=== PATIENT | female | born 1935 | race Caucasian/White ===

== ENCOUNTER 2017-02-25 16:33 | Observation (INO) | payer MEDICARE, OTHER ==
[2017-02-25] VITALS (8 sets, daily range): BP systolic 103–123; BP diastolic 51–72; PULSE 67–74; RESP 16–18; TEMP 97–98.2; O2SAT 94–100
[~2017-02-25] VITALS: Ht 144.8 cm; Wt 82.7 kg
[~2017-02-25 16:33] MED LIST: CLIN1CAP5 PO; CYMB60CA PO; HYDR-3580 PO; LORT5TAB PO; NEXI40CA PO; SIMV20 PO; TRAZ100T50 PO; VESI10TA4 PO; ZOFR4TAB3 SL
[2017-02-25] MEDS ORDERED: SODIUM CHLOR 0.9% 1000 ML INJ 1,000 ML IV SCH (16:55)
[2017-02-25] MEDS ORDERED: FAMOTIDINE 20 MG/2 ML VIAL IV PUSH ONE (17:00)
[2017-02-25] MEDS ORDERED: diphenhydrAMINE HCL 50 MG/ML VIAL IVP ONE (17:00)
[2017-02-25] MEDS ORDERED: EPINEPHrine HCL (1:1000) 1 MG/ML VIAL IM ONE (17:00)
[2017-02-25] MEDS ORDERED: SODIUM CHLORIDE 0.9% FLUSH 10 ML FLUSH IV FLUSH PRN ×2 (17:00→19:00)
[2017-02-25] MEDS ORDERED: methylPREDNISolone SOD SUCC 125 MG/2 ML VIAL IM ONE (17:00)
--- NOTE | 2017-02-25 17:01 | PD ---
HPI Chief Complaint: Respiratory Symptoms Time Seen by Provider: 16:43 Travel History International Travel<30 days: No Contact w/Intl Traveler<30days: No Traveled to known affect area: No History of Present Illness HPI 81yo F with PMH of afib, depression presents to the ED with c/o throat closing and trouble breathing today. States she took bupropion for the first time this morning and had these symptoms after that. States she had some nausea prior to the medication today. Pt also started belsomna for insomnia for a few days and is on bactrim. Denies any fever, chest pain, cough, rash, vomiting, abdominal pain, focal weakness or numbness. PFSH Past Medical History Hx Anticoagulant Therapy: Yes (WARFARIN) Arthritis: Yes Atrial Fibrillation: Yes Autoimmune Disease: No Blood Disorders: No Anxiety: Yes Depression: Yes Heart Rhythm Problems: No Cancer: No Cardiovascular Problems: Yes (A. FIB, HTN, CHOL) High Cholesterol: Yes Chest Pain: Yes Congestive Heart Failure: Yes Diabetes: No Diminished Hearing: No Endocrine: No Gastrointestinal Disorders: Yes (GERD) GERD: Yes Glaucoma: No Genitourinary: Yes Hypertension: Yes Immune Disorder: Yes (fibromyalgia) Implanted Vascular Access Dvce: Yes Musculoskeletal: Yes Neurologic: No Psychiatric: Yes Reproductive: No Respiratory: Yes Myocardial Infarction: No Sickle Cell Disease: No Sleep Apnea: Yes (uses c-pap at nite) Thyroid Disease: No Tetanus Vaccination: > 5 Years Influenza Vaccination: No ?: Not Past Surgical History AICD: No Arteriovenous Shunt: No Eye Surgery: Yes (paco cataract removed, LENS IMPLANTS) Gynecologic Surgery: Yes (hystereectomy partial) Hysterectomy: Yes Insulin Pump: No Joint Replacement: Yes (paco knees and L HIP) Pacemaker: No Other Surgery: Yes Social History Alcohol Use: No Tobacco Use: No Substance Use: Yes Allergies-Medications (Allergen,Severity, Reaction): Coded Allergies: Gabapentin (Verified Allergy, Severe, Dizziness, 02/25/17) Penicillin (Verified Allergy, Severe, Hives, 02/25/17) Xarelto (Verified Allergy, Severe, MUSCLE ACHES, 02/25/17) Reported Meds & Prescriptions Reported Meds & Active Scripts Active Reported Bactrim DS (Sulfamethoxazole-Trimethoprim) 800-160 Mg Tab 1 Tab PO BID Atorvastatin (Atorvastatin Calcium) 10 Mg Tab 10 Mg PO HS Esomeprazole DR 20 Mg Capdr 20 Mg PO DAILY Coumadin (Warfarin) 5 Mg Tab 5 Mg PO DAILY Ergocalciferol 50,000 Unit Cap 50,000 Units PO Q7D Flector Patch (Diclofenac Patch) 1.3 % Patch 1 Patch TOPICAL BID Valsartan-Hydrochlorothiazide 160-25 Mg Tab 1 Tab PO DAILY Metoprolol Tartrate 50 Mg Tab 50 Mg PO BID Myrbetriq (Mirabegron) 50 Mg Tab 50 Mg PO DAILY Belsomra (Suvorexant) 20 Mg Tab 2 Tab PO HS Amlodipine (Amlodipine Besylate) 10 Mg Tab 10 Mg PO BID Review of Systems Except as stated in HPI: all other systems reviewed are Neg Physical Exam Narrative GENERAL: 81yo F in mild distress. SKIN: Focused skin assessment warm/dry. No urticaria. HEAD: Atraumatic. Normocephalic. EYES: Pupils equal and round. No scleral icterus. No injection or drainage. No periorbital swelling. ENT: Mild uvula edema. Uvula midline. Patent airway. No tongue or lip swelling. No drooling. NECK: Trachea midline. No JVD. CARDIOVASCULAR: Regular rate and rhythm. No murmur appreciated. RESPIRATORY: No accessory muscle use. Clear to auscultation. Breath sounds equal bilaterally. No stridor. No tripoding. GASTROINTESTINAL: Abdomen soft, non-tender, nondistended. MUSCULOSKELETAL: No obvious deformities. No clubbing. No cyanosis. +Trace bilateral ext edema. NEUROLOGICAL: Awake and alert. No obvious cranial nerve deficits. Motor grossly within normal limits. Normal speech. PSYCHIATRIC: Appropriate mood and affect; insight and judgment normal. Data Data Last Documented VS Vital Signs Date Time Temp Pulse Resp B/P Pulse Ox O2 Delivery O2 Flow Rate FiO2 02/25/17 18:11 74 16 110/59 98 Room Air 02/25/17 16:36 98.2 Orders Basic Metabolic Panel (Bmp) (02/25/17 16:55) Complete Blood Count With Diff (02/25/17 16:55) Ecg Monitoring (02/25/17 16:55) Iv Access Insert/Monitor (02/25/17 16:55) Oximetry (02/25/17 16:55) Diphenhydramine Inj (Benadryl Inj) (02/25/17 17:00) Methylprednisolone So Succ Inj (Solumedr (02/25/17 17:00) Famotidine Inj (Pepcid Inj) (02/25/17 17:00) Sodium Chlor 0.9% 1000 Ml Inj (Ns 1000 M (02/25/17 16:55) Sodium Chloride 0.9% Flush (Ns Flush) (02/25/17 17:00) Epinephrine (1:1000) Inj (Adrenalin (1:1 (02/25/17 17:00) Electrocardiogram (02/25/17 ) Troponin I (02/25/17 16:55) Ckmb (Isoenzyme) Profile (02/25/17 16:55) Soft Tissue Neck (02/25/17 ) Chest, Single Ap (02/25/17 ) Pulmonary Fellow / Telemetry LOIS.Q8H (02/25/17 16:55) B-Type Natriuretic Peptide (02/25/17 17:01) Admit Order (Ed Use Only) (02/25/17 18:11) Labs Laboratory Tests Test 02/25/17 17:00 White Blood Count 8.3 TH/MM3 Red Blood Count 4.49 MIL/MM3 Hemoglobin 11.7 GM/DL Hematocrit 36.4 % Mean Corpuscular Volume 81.2 FL Mean Corpuscular Hemoglobin 26.0 PG Mean Corpuscular Hemoglobin 32.0 % Concent Red Cell Distribution Width 14.9 % Platelet Count 191 TH/MM3 Mean Platelet Volume 7.1 FL Neutrophils (%) (Auto) 69.8 % Lymphocytes (%) (Auto) 17.9 % Monocytes (%) (Auto) 9.6 % Eosinophils (%) (Auto) 2.4 % Basophils (%) (Auto) 0.3 % Neutrophils # (Auto) 5.8 TH/MM3 Lymphocytes # (Auto) 1.5 TH/MM3 Monocytes # (Auto) 0.8 TH/MM3 Eosinophils # (Auto) 0.2 TH/MM3 Basophils # (Auto) 0.0 TH/MM3 CBC Comment DIFF FINAL Differential Comment Sodium Level 139 MEQ/L Potassium Level 3.7 MEQ/L Chloride Level 102 MEQ/L Carbon Dioxide Level 27.3 MEQ/L Anion Gap 10 MEQ/L Blood Urea Nitrogen 41 MG/DL Creatinine 1.20 MG/DL Estimat Glomerular Filtration 43 ML/MIN Rate Random Glucose 116 MG/DL Calcium Level 8.7 MG/DL Total Creatine Kinase 64 U/L Troponin I LESS THAN 0.02 NG/ML B-Type Natriuretic Peptide 214 PG/ML MDM Medical Decision Making Medical Screen Exam Complete: Yes Emergency Medical Condition: Yes Interpretation(s) EKG: NSR 67bpm. No ST segment elevation or depression. Differential Diagnosis Allergic reaction vs. anxiety vs. soft tissue neck infection Narrative Course 81yo F with complained of tightening of his throat today with sob. Pt had started on a new medication bupropion this morning. Lungs are clear. Uvula mildly edematous, not very impressive. labs reviewed, no leukocytosis. Troponin negative. BNP mildly elevated at 214. BUN/creatinine mildly elevated. Pt reevaluated at bedside and states throat swelling improved. SOB also improved. Lungs are still clear. CXR showed compensated cardiomegaly. Xray soft tissue negative. Will admit for observation overnight and discussed with [facility]. Admit to Dr. Phuc Garcia. Diagnosis Primary Impression: Allergic reaction Qualified Code: T78.40XA - Allergic reaction, initial encounter Admitting Information Admitting Physician Requests: Observation Preethi Rivera DO February 25, 2017 17:01
[2017-02-25 17:12] LABS: AUTOMATED NEUTROPHIL # 5.8 TH/MM3 (1.8-7.7); BASOPHIL % 0.3 % (0.0-2.0); EOSINOPHIL # 0.2 TH/MM3 (0-0.4); EOSINOPHIL % 2.4 % (0.0-4.0); HEMATOCRIT 36.4 % (35.0-46.0); HEMO FLAGS DIFF FINAL; LYMPH % 17.9 % (9.0-44.0); LYMPHOCYTE # 1.5 TH/MM3 (1.0-4.8); MEAN CELL VOLUME 81.2 FL (80.0-100.0); MONO % 9.6 % (0.0-8.0); NEUT % 69.8 % (16.0-70.0); PLATELET COUNT 191 TH/MM3 (150-450); RED BLOOD COUNT 4.49 MIL/MM3 (4.00-5.30); RED CELL DISTRIBUTION WIDTH 14.9 % (11.6-17.2); WHITE BLOOD COUNT 8.3 TH/MM3 (4.0-11.0)
[2017-02-25 17:21] LABS: CHLORIDE 102 MEQ/L (98-107); POTASSIUM 3.7 MEQ/L (3.5-5.1); SODIUM (NA) 139 MEQ/L (136-145)
[2017-02-25] MEDS ORDERED: BUPR1TAB29 PO (17:21)
[2017-02-25] MEDS ORDERED: ESOM0.1C PO (17:21)
[2017-02-25] MEDS ORDERED: AMLO10TA2 PO (17:21)
[2017-02-25] MEDS ORDERED: COUM5TAB PO (17:21)
[2017-02-25] MEDS ORDERED: SUVO1TAB4 PO (17:21)
[2017-02-25] MEDS ORDERED: VALS160T6 PO (17:21)
[2017-02-25] MEDS ORDERED: ATOR10TA15 PO (17:21)
[2017-02-25] MEDS ORDERED: ERGO1CAP30 PO (17:21)
[2017-02-25] MEDS ORDERED: FLEC1.3D4 TOPICAL (17:21)
[2017-02-25] MEDS ORDERED: MIRA50TA PO (17:21)
[2017-02-25] MEDS ORDERED: METO50TA PO (17:21)
[2017-02-25] MEDS ORDERED: BACT800T5 PO (17:22)
[2017-02-25 17:24] LABS: ANION GAP 10 MEQ/L (5-15); BICARBONATE 27.3 MEQ/L (21.0-32.0); BLOOD UREA NITROGEN 41 MG/DL (7-18)
[2017-02-25 17:28] LABS: GLOMERULAR FILTRATION RATE 43 ML/MIN (>89)
[2017-02-25 17:41] LABS: CREATINE KINASE 64 U/L (26-192)
--- NOTE | 2017-02-25 17:46 | RADHPO ---
EXAM DATE/TIME: 02/25/2017 17:23 [facility] COMPARISON: No previous studies available for comparison. INDICATIONS : Short of breath, difficulty swallowing MEDICAL HISTORY : Chronic obstructive pulmonary disease. SURGICAL HISTORY : None. ENCOUNTER: Initial ACUITY: 1 day PAIN SCORE: 0/10 LOCATION: Bilateral neck FINDINGS: Degenerative changes are evident. I see no soft tissue mass or radiopaque foreign body. CONCLUSION: Degenerative changes otherwise negative Hayden Wheeler MD FACR on February 25, 2017 at 17:43 Board Certified Radiologist. This report was verified electronically.
--- NOTE | 2017-02-25 17:47 | RADHPO ---
EXAM DATE/TIME: 02/25/2017 17:18 [facility] COMPARISON: No previous studies available for comparison. INDICATIONS : Short of breath, difficulty swallowing MEDICAL HISTORY : Chronic obstructive pulmonary disease. SURGICAL HISTORY : None. ENCOUNTER: Initial ACUITY: 1 day PAIN SCORE: 0/10 LOCATION: Bilateral chest FINDINGS: The lungs are clear. The heart is minimally enlarged. The pulmonary vascularity is normal. There is n o evidence for infiltrate or failure. Degenerative changes are present about both shoulders. CONCLUSION: Compensated cardiomegaly otherwise negative Hayden Wheeler MD FACR Board Certified Radiologist. This report was verified electronically.
[2017-02-25] MEDS ORDERED: NALOXONE HCL 0.4 MG/ML AMP IV PRN (19:00)
[2017-02-25] MEDS ORDERED: RESP: ALBUTEROL 2.5 MG/IPRATROPIUM 0.5 MG NEB (PRN) NEB (19:00)
[2017-02-25] MEDS ORDERED: diphenhydrAMINE HCL 50 MG/ML VIAL IV PUSH PRN (19:00)
[2017-02-25] MEDS ORDERED: ACETAMINOPHEN 325 MG TAB PO PRN (19:00)
[2017-02-25] MEDS ORDERED: ONDANSETRON HCL 4 MG/2 ML VIAL IVP PRN (19:00)
[2017-02-25 19:41] LABS: INTERNATIONAL NORMALIZED RATIO 1.4 RATIO; PROTHROMBIN TIME - PATIENT 16.2 SEC (9.8-11.6)
[2017-02-25] MEDS ORDERED: ATORVASTATIN 10 MG TAB PO SCH (21:00)
[2017-02-25] MEDS: METOPROLOL TARTRATE 50 MG TAB PO SCH (21:13)
[2017-02-25 23:35] LABS: CREATINE KINASE 55 U/L (26-192)
[2017-02-26] VITALS: BP 115/69; PULSE 70; RESP 16; TEMP 97.9; O2SAT 95
[2017-02-26] MEDS: SODIUM CHLORIDE 0.9% FLUSH 10 ML FLUSH IV FLUSH SCH ×2 (00:43→09:02)
[2017-02-26 04:48] VITALS: BP 119/67; PULSE 64; RESP 20; TEMP 98; O2SAT 94
[2017-02-26] MEDS ORDERED: methylPREDNISolone SOD SUCC 40 MG/1 ML VIAL IV PUSH SCH (06:00)
[2017-02-26 07:07] LABS: AUTOMATED NEUTROPHIL # 7.8 TH/MM3 (1.8-7.7); BASOPHIL % 0.3 % (0.0-2.0); EOSINOPHIL % 0.1 % (0.0-4.0); HEMATOCRIT 35.3 % (35.0-46.0); HEMO FLAGS DIFF FINAL; LYMPH % 7.1 % (9.0-44.0); LYMPHOCYTE # 0.6 TH/MM3 (1.0-4.8); MEAN CELL VOLUME 82.5 FL (80.0-100.0); MEAN CORPUSCULAR HEMOGLOBIN 26.5 PG (27.0-34.0); MEAN CORPUSCULAR HGB CONC 32.1 % (32.0-36.0); MONO % 0.7 % (0.0-8.0); NEUT % 91.8 % (16.0-70.0); PLATELET COUNT 178 TH/MM3 (150-450); RED BLOOD COUNT 4.28 MIL/MM3 (4.00-5.30); RED CELL DISTRIBUTION WIDTH 14.4 % (11.6-17.2); WHITE BLOOD COUNT 8.5 TH/MM3 (4.0-11.0)
[2017-02-26 07:13] LABS: CHLORIDE 103 MEQ/L (98-107); POTASSIUM 4.1 MEQ/L (3.5-5.1); SODIUM (NA) 140 MEQ/L (136-145)
[2017-02-26 07:17] LABS: ANION GAP 8 MEQ/L (5-15); BICARBONATE 28.8 MEQ/L (21.0-32.0); BLOOD UREA NITROGEN 34 MG/DL (7-18)
[2017-02-26 07:20] LABS: GLOMERULAR FILTRATION RATE 58 ML/MIN (>89)
[2017-02-26 07:35] LABS: CREATINE KINASE 50 U/L (26-192)
[2017-02-26 08:00] VITALS: BP 135/70; PULSE 70; RESP 18; TEMP 98.1; O2SAT 98
[2017-02-26] MEDS: METOPROLOL TARTRATE 50 MG TAB PO SCH (08:58)
[2017-02-26] MEDS ORDERED: FAMOTIDINE 20 MG/2 ML VIAL IV PUSH SCH (09:00)
[2017-02-26] MEDS ORDERED: VALSARTAN 160 MG TAB PO SCH (09:00)
[2017-02-26] MEDS ORDERED: HYDROCHLOROTHIAZIDE 25 MG TAB PO SCH (09:00)
[2017-02-26] MEDS ORDERED: NON-FORMULARY DRUG (Mirabegron (Myrbetriq) 50 MG) PO SCH (09:00)
[2017-02-26] MEDS ORDERED: NON-FORMULARY DRUG (Valsartan-Hydrochlorothiazide 1 TAB) PO SCH (09:00)
[2017-02-26] MEDS ORDERED: MIRABEGRON 50 MG PO SCH (09:00)
--- NOTE | 2017-02-26 10:39 | MH ---
cc: PHUC SOLORZANO MD DATE OF ADMISSION: 02/25/2017 CHIEF COMPLAINT Shortness of breath. HISTORY OF PRESENT ILLNESS This is an 81-year-old female with past medical/surgical history significant for atrial fibrillation on Coumadin, history of arthritis, history of anxiety and depression, history of hypertension, hyperlipidemia, congestive heart failure, history of GERD, fibromyalgia, uses a CPAP at nighttime, bilateral cataract surgery, partial hysterectomy and bilateral hip and knee joint replacement. She lives alone at home. She came to the ER at [facility] complaining of throat closing and trouble breathing today. She states she took bupropion for the first time this morning and had these symptoms. She stated she had some nausea prior to the medication today. She started Belsomra for insomnia for a few days and is on Bactrim. Denies any fever or chills, cough, rash, vomiting, abdominal pain, focal weakness or numbness. PAST MEDICAL HISTORY As dictated above. PAST SURGICAL HISTORY As dictated above. SOCIAL HISTORY Denies smoking, drinking or taking and drugs. Lives at home alone. Her recently . FAMILY HISTORY Nothing significant. ALLERGIES 1. GABAPENTIN. 2. PENICILLIN. 3. XARELTO. MEDICATIONS 1. Bactrim DS, one p.o. b.i.d. 2. Lipitor 10 mg p.o. daily. 3. Omeprazole 20 mg p.o. daily. 4. Coumadin 5 mg p.o. daily. 5. Ergocalciferol 50,000 units q.1 week. 6. Diclofenac patch topically twice a day. 7. Valsartan/hydrochlorothiazide 160/25 p.o. daily. 8. Metoprolol tartrate 50 mg twice a day. 9. Myrbetriq 50 mg p.o. daily. 10.Belsomra 20 mg p.o. h.s., two tablets. 11.Amlodipine 10 mg p.o. b.i.d. REVIEW OF SYSTEMS All review of systems are negative at the time of examination. The patient does not have any symptoms or complaints at the time of examination. PHYSICAL EXAMINATION GENERAL: This is an 81-year-old female sitting on the bed, not in acute distress. VITAL SIGNS: Temperature 98.1, heart rate 70, respirations 18, blood pressure 135/70, O2 saturation 98% on room air. HEENT: Normocephalic, atraumatic. EOMI. PERRL. Oral mucosa moist. NECK: Supple. No visible thyromegaly or neck mass. Trachea is central. CV: Regular rate and rhythm. LUNGS: Respirations clear to auscultation bilaterally. ABDOMEN: Soft, nontender. Bowel sounds audible. EXTREMITIES: No cyanosis. No clubbing. Full range of motion of all extremities. NEUROLOGIC: Awake, alert, oriented x4. No focal deficits. SKIN: Warm and dry. PSYCHIATRIC: The patient is cooperative. Mood and affect is normal. LABORATORY CBC is unremarkable except for hemoglobin 11.3 low, MCH 26.5 low, neutrophils 91.8% high, lymphocytes 7.1% low. BMP is unremarkable except for creatinine 1.2, now 0.93, blood sugar 141 high, BUN 34 high. Troponin-I less than 0.02 x3. BNP 214 high. PT 16, INR 1.4. IMAGING Chest x-ray shows compensated cardiomegaly, otherwise negative. Soft tissue neck x-ray shows degenerative changes, otherwise negative. ASSESSMENT AND PLAN 1. This is an 81-year female who came to the ER, diagnosed with allergic reaction secondary to bupropion which has totally resolved. 2. History of atrial fibrillation, rate controlled. The patient is on Coumadin. INR is subtherapeutic. Patient advised to check PT and INR with her PCP. The patient wants to go home. The patient advised to stay and have INR come up to 2.0. The patient refused. The risks, benefits and alternatives explained to the patient including . The patient verbalized understanding. 3. History of hypertension. Continue home medication. 4. History of hyperlipidemia. Continue home medication. 5. History of anxiety and depression. Continue home medication. 6. History of gastroesophageal reflux disease. Continue home medication. 7. Patient discharged home and advised to follow with PCP and check PT and INR. Advised INR needs to be between 2 and 3. Phuc Solorzano MD EA/EDEL /10:02 AM /10:24 AM
[2017-02-26 12:00] VITALS: BP 116/65; PULSE 65; RESP 18; TEMP 97.8; O2SAT 96
--- NOTE | 2017-02-26 14:50 | EKG ---
Date Performed: 02/26/2017 Time Performed: 05:03:14 PTAGE: 81 years EKG: Sinus rhythm Low QRS voltages in precordial leads Borderline ECG PREVIOUS TRACING : 02/25/2017 22.32 Since previous tracing, no significant change noted DOCTOR: Bebeto Azul Interpretating Date/Time 02/26/2017 14:43:46
--- NOTE | 2017-02-26 14:51 | EKG ---
Date Performed: 02/25/2017 Time Performed: 22:32:22 PTAGE: 81 years EKG: Sinus rhythm . Normal ECG No change from prior. PREVIOUS TRACING : 02/25/2017 17.01 DOCTOR: Bebeto Azul Interpretating Date/Time 02/26/2017 14:48:11
--- NOTE | 2017-02-26 14:51 | EKG ---
Date Performed: 02/25/2017 Time Performed: 17:01:58 PTAGE: 81 years EKG: Sinus rhythm No change from prior. Abnormal ECG PREVIOUS TRACING : 07/15/2009 09.45 DOCTOR: Bebeto Azul Interpretating Date/Time 02/26/2017 14:47:59
[2017-02-26] MEDS ORDERED: WARFARIN SOD 5 MG TAB PO SCH (16:00)
== END 2017-02-26 13:32 | disposition home or self-care (01) ==
LOC: PHED 16:33 → UNDOADMOB 18:13 → PHEDA 18:13 → PH3A 21:30 → UNDODISOB 02-26 13:32
PROVIDERS: ADMIT Family Medicine; ATTEND Family Medicine
DX: R06.02 Shortness of breath (principal); T43.295A Adverse effect of other antidepressants, initial encounter; I48.91 Unspecified atrial fibrillation; I11.0 Hypertensive heart disease with heart failure; I50.9 Heart failure, unspecified; E78.00 Pure hypercholesterolemia, unspecified; E78.5 Hyperlipidemia, unspecified; K21.9 Gastro-esophageal reflux disease without esophagitis; M19.90 Unspecified osteoarthritis, unspecified site; M79.7 Fibromyalgia; F32.9 Major depressive disorder, single episode, unspecified; G47.00 Insomnia, unspecified; F41.9 Anxiety disorder, unspecified; G47.30 Sleep apnea, unspecified; Z79.01 Long term (current) use of anticoagulants; Z99.89 Dependence on other enabling machines and devices; Z96.653 Presence of artificial knee joint, bilateral; Z96.642 Presence of left artificial hip joint; Z88.0 Allergy status to penicillin; Z88.8 Allergy status to other drugs, medicaments and biological substances
CPT/HCPCS: 70360; 71010; 80048; 82550; 83880; 84484; 85025; 85610; 93005; 96372; 96374; 96375; 99285; G0378; J0171; J1200; J2405; J2920; J2930

== ENCOUNTER 2017-07-31 10:51 | Emergency (ER) | payer MEDICARE, OTHER ==
[~2017-07-31] VITALS: Ht 144.8 cm; Wt 87.0 kg
[~2017-07-31 10:51] MED LIST changes: +AMLO10TA2 PO; +ATOR10TA15 PO; +BACT800T5 PO; -CLIN1CAP5 PO; +COUM5TAB PO; -CYMB60CA PO; +ERGO1CAP30 PO; +ESOM0.1C PO; +FLEC1.3D4 TOPICAL; -HYDR-3580 PO; -LORT5TAB PO; +METO50TA PO; +MIRA50TA PO; -NEXI40CA PO; -SIMV20 PO; +SUVO1TAB4 PO; -TRAZ100T50 PO; +VALS160T6 PO; -VESI10TA4 PO; -ZOFR4TAB3 SL
[2017-07-31 10:52] VITALS: BP 227/95; PULSE 83; RESP 20; TEMP 98.4; O2SAT 97
[2017-07-31 11:32] LABS: AUTOMATED NEUTROPHIL # 5.1 TH/MM3 (1.8-7.7); BASOPHIL % 0.3 % (0.0-2.0); EOSINOPHIL # 0.1 TH/MM3 (0-0.4); EOSINOPHIL % 1.2 % (0.0-4.0); HEMATOCRIT 35.3 % (35.0-46.0); HEMO FLAGS DIFF FINAL; LYMPH % 16.9 % (9.0-44.0); LYMPHOCYTE # 1.2 TH/MM3 (1.0-4.8); MEAN CELL VOLUME 79.6 FL (80.0-100.0); MEAN CORPUSCULAR HEMOGLOBIN 25.3 PG (27.0-34.0); MEAN CORPUSCULAR HGB CONC 31.7 % (32.0-36.0); MONO % 9.4 % (0.0-8.0); NEUT % 72.2 % (16.0-70.0); PLATELET COUNT 195 TH/MM3 (150-450); RED BLOOD COUNT 4.43 MIL/MM3 (4.00-5.30); RED CELL DISTRIBUTION WIDTH 15.9 % (11.6-17.2)
[2017-07-31 11:45] LABS: INTERNATIONAL NORMALIZED RATIO 2.6 RATIO; PROTHROMBIN TIME - PATIENT 29.5 SEC (9.8-11.6)
[2017-07-31 11:48] LABS: ANION GAP 5 MEQ/L (5-15); AST (GOT) 16 U/L (15-37); BICARBONATE 29.5 MEQ/L (21.0-32.0); BLOOD UREA NITROGEN 22 MG/DL (7-18); CHLORIDE 108 MEQ/L (98-107); GLOMERULAR FILTRATION RATE 92 ML/MIN (>89); SODIUM (NA) 142 MEQ/L (136-145)
[2017-07-31 11:51] LABS: ACETAMINOPHEN 2.6 MCG/ML (10.0-30.0); ALKALINE PHOSPHATASE 78 U/L (45-117); ALT (GPT) 16 U/L (10-53); TOTAL BILIRUBIN ADULT 0.4 MG/DL (0.2-1.0)
[2017-07-31 11:53] LABS: ALCOHOL LESS THAN 3 MG/DL (0-5)
[2017-07-31 11:55] LABS: BACTERIA, URINE OCC /hpf; BLOOD, URINE TRACE (NEG); GLUCOSE,URINE NEG (NEG); KETONE, URINE NEG (NEG); NITRITE,URINE NEG (NEG); SQUAMOUS EPITHELIAL CELL URINE <1 /hpf (0-5); URINE COLOR LIGHT-YELLOW (YELLW/STRAW)
[2017-07-31] MEDS ORDERED: LYRI50CA PO (11:55)
[2017-07-31] MEDS ORDERED: JANT5TAB PO (11:55)
[2017-07-31] MEDS ORDERED: OXYB15TA PO (11:55)
[2017-07-31 11:56] LABS: COMMENT (UR) CULT NOT INDICATED; CULTURE IF INDICATED CULT NOT INDICATED
--- NOTE | 2017-07-31 12:04 | PD ---
HPI Chief Complaint: Psychiatric Symptoms Time Seen by Provider: 11:48 Travel History International Travel<30 days: No Contact w/Intl Traveler<30days: No Traveled to known affect area: No History of Present Illness HPI 81 YO F with PMH of depression presents to the ED for evaluation of one year history of increasing depression, worsened recently after the patient moved from her home to an independent living facility. The patient endorses anhedonia , increased somnolence, weight gain. She states "I just feel like I don't have any reason to live." The patient is a [employer] with a strong taoist belief. She states this is the only thing that keeps her from ending her life. She states that she saved 4 or 5 of her "sleeping pills--just in case." Her friend is at bedside and states that her symptoms have definitely worsened over the last few weeks. The patient denies somatic complaints. She states that she is in her normal state of health currently. The patient is followed by Dr. Bazan in [place]. She is currently taking Lyrica. PFSH Past Medical History Hx Anticoagulant Therapy: Yes (WARFARIN) Arthritis: Yes Asthma: No Atrial Fibrillation: Yes Autoimmune Disease: No Blood Disorders: No Anxiety: Yes Depression: Yes Heart Rhythm Problems: No Cancer: No Cardiovascular Problems: Yes (A. FIB, HTN, CHOL) High Cholesterol: Yes Chest Pain: Yes Congestive Heart Failure: Yes COPD: No Diabetes: No Diminished Hearing: No Endocrine: No Gastrointestinal Disorders: Yes (GERD) GERD: Yes Glaucoma: No Genitourinary: Yes Hiatal Hernia: No Hypertension: Yes Immune Disorder: Yes (fibromyalgia) Implanted Vascular Access Dvce: Yes Kidney Stones: No Musculoskeletal: Yes Neurologic: No Psychiatric: Yes Reproductive: No Respiratory: Yes Myocardial Infarction: No Renal Failure: No Sickle Cell Disease: No Sleep Apnea: Yes (uses c-pap at nite) Thyroid Disease: No Ulcer: No Tetanus Vaccination: < 5 Years Past Surgical History Abdominal Surgery: No AICD: No Arteriovenous Shunt: No Cardiac Surgery: No Ear Surgery: No Endocrine Surgery: No Eye Surgery: Yes (paco cataract removed, LENS IMPLANTS) Genitourinary Surgery: No Gynecologic Surgery: Yes (hystereectomy partial) Hysterectomy: Yes Insulin Pump: No Joint Replacement: Yes (paco knees and L HIP) Oral Surgery: No Pacemaker: No Thoracic Surgery: No Other Surgery: Yes Social History Alcohol Use: No Tobacco Use: No Substance Use: No Allergies-Medications (Allergen,Severity, Reaction): Coded Allergies: gabapentin (Unverified Allergy, Severe, Dizziness, 07/31/17) penicillin G (Unverified Allergy, Severe, Hives, 07/31/17) rivaroxaban (Unverified Allergy, Severe, MUSCLE ACHES, 07/31/17) Uncoded Allergies: donezepil (Adverse Reaction, Severe, Lethargy, 07/31/17) Reported Meds & Prescriptions Reported Meds & Active Scripts Active Effexor (Venlafaxine HCl) 75 Mg Tab 75 Mg PO Q12H Reported Oxybutynin ER 24 HR (Oxybutynin Chloride) 15 Mg Tab 15 Mg PO DAILY Jantoven (Warfarin) 5 Mg Tab 5 Mg PO DAILY Lyrica (Pregabalin) 50 Mg Cap 50 Mg PO BID Bactrim DS (Sulfamethoxazole-Trimethoprim) 800-160 Mg Tab 1 Tab PO BID Atorvastatin (Atorvastatin Calcium) 10 Mg Tab 10 Mg PO HS Esomeprazole DR 20 Mg Capdr 20 Mg PO DAILY Coumadin (Warfarin) 5 Mg Tab 5 Mg PO DAILY Ergocalciferol 50,000 Unit Cap 50,000 Units PO Q7D Flector Patch (Diclofenac Patch) 1.3 % Patch 1 Patch TOPICAL BID Valsartan-Hydrochlorothiazide 160-25 Mg Tab 1 Tab PO DAILY Metoprolol Tartrate 50 Mg Tab 50 Mg PO BID Myrbetriq (Mirabegron) 50 Mg Tab 50 Mg PO DAILY Belsomra (Suvorexant) 20 Mg Tab 2 Tab PO HS Amlodipine (Amlodipine Besylate) 10 Mg Tab 10 Mg PO BID Review of Systems Except as stated in HPI: all other systems reviewed are Neg Physical Exam Narrative GENERAL: Obese white female in no acute distress. PSYCHIATRIC: No delusional thought processes. No hallucinations. Depressed affect. Occasionally tearful. SKIN: Focused skin assessment warm/dry. HEAD: Normocephalic. EYES: No scleral icterus. No injection or drainage. NECK: Supple, trachea midline. No JVD or lymphadenopathy. CARDIOVASCULAR: Irregularly irregular rate and rhythm without murmurs, gallops, or rubs. RESPIRATORY: Breath sounds clear and equal bilaterally. No accessory muscle use. GASTROINTESTINAL: Abdomen soft, non-tender, nondistended. Active bowel sounds. MUSCULOSKELETAL: No cyanosis, or edema. BACK: Nontender without obvious deformity. No CVA tenderness. Data Data Last Documented VS Vital Signs Date Time Temp Pulse Resp B/P (MAP) Pulse Ox O2 Delivery O2 Flow Rate FiO2 07/31/17 15:49 78 20 162/74 (103) 98 07/31/17 10:52 98.4 Room Air Orders Orders Complete Blood Count With Diff (07/31/17 10:58) Comprehensive Metabolic Panel (07/31/17 10:58) Urinalysis - C+S If Indicated (07/31/17 10:58) Psych Screen (07/31/17 10:58) Drug Screen, Random Urine (07/31/17 10:58) Alcohol (Ethanol) (07/31/17 10:58) Salicylates (Aspirin) (07/31/17 10:58) Tylenol (Acetaminophen) (07/31/17 10:58) Electrocardiogram (07/31/17 ) Prothrombin Time / Inr (Pt) (07/31/17 11:15) Diet Regular Basic (07/31/17 Lunch) Labs Laboratory Tests Test 07/31/17 11:11 07/31/17 11:30 White Blood Count 7.0 TH/MM3 Red Blood Count 4.43 MIL/MM3 Hemoglobin 11.2 GM/DL Hematocrit 35.3 % Mean Corpuscular Volume 79.6 FL Mean Corpuscular Hemoglobin 25.3 PG Mean Corpuscular Hemoglobin Concent 31.7 % Red Cell Distribution Width 15.9 % Platelet Count 195 TH/MM3 Mean Platelet Volume 6.7 FL Neutrophils (%) (Auto) 72.2 % Lymphocytes (%) (Auto) 16.9 % Monocytes (%) (Auto) 9.4 % Eosinophils (%) (Auto) 1.2 % Basophils (%) (Auto) 0.3 % Neutrophils # (Auto) 5.1 TH/MM3 Lymphocytes # (Auto) 1.2 TH/MM3 Monocytes # (Auto) 0.7 TH/MM3 Eosinophils # (Auto) 0.1 TH/MM3 Basophils # (Auto) 0.0 TH/MM3 CBC Comment DIFF FINAL Differential Comment Prothrombin Time 29.5 SEC Prothromb Time International Ratio 2.6 RATIO Blood Urea Nitrogen 22 MG/DL Creatinine 0.62 MG/DL Random Glucose 94 MG/DL Total Protein 6.2 GM/DL Albumin 3.4 GM/DL Calcium Level 8.4 MG/DL Alkaline Phosphatase 78 U/L Aspartate Amino Transf (AST/SGOT) 16 U/L Alanine Aminotransferase (ALT/SGPT) 16 U/L Total Bilirubin 0.4 MG/DL Sodium Level 142 MEQ/L Potassium Level 4.0 MEQ/L Chloride Level 108 MEQ/L Carbon Dioxide Level 29.5 MEQ/L Anion Gap 5 MEQ/L Estimat Glomerular Filtration Rate 92 ML/MIN Salicylates Level LESS THAN 1.7 MG/DL Acetaminophen Level 2.6 MCG/ML Ethyl Alcohol Level LESS THAN 3 MG/DL Urine Color LIGHT-YELLOW Urine Turbidity CLEAR Urine pH 7.0 Urine Specific Seibert 1.004 Urine Protein NEG mg/dL Urine Glucose (UA) NEG mg/dL Urine Ketones NEG mg/dL Urine Occult Blood TRACE Urine Nitrite NEG Urine Bilirubin NEG Urine Urobilinogen LESS THAN 2.0 MG/DL Urine Leukocyte Esterase SMALL Urine RBC LESS THAN 1 /hpf Urine WBC 5 /hpf Urine Squamous Epithelial Cells <1 /hpf Urine Bacteria OCC /hpf Microscopic Urinalysis Comment CULT NOT INDICATED Urine Opiates Screen NEG Urine Barbiturates Screen NEG Urine Amphetamines Screen NEG Urine Benzodiazepines Screen NEG Urine Cocaine Screen NEG Urine Cannabinoids Screen NEG MDM Medical Decision Making Medical Screen Exam Complete: Yes Emergency Medical Condition: Yes Differential Diagnosis Adjustment disorder versus anxiety versus bipolar versus depression versus dementia versus electrolyte disorder versus malingering versus mood disorder versus ODD versus psychosis versus PTSD versus schizophrenia versus schizoaffective disorder versus substance-induced mood disorder versus other Narrative Course 81 YO F with PMH of depression presents to the ED for evaluation of one year history of increasing depression, worsened recently after the patient moved from her home to an independent living facility. The patient endorses anhedonia , increased somnolence, weight gain. She states "I just feel like I don't have any reason to live." The patient is a [employer] with a strong taoist belief. She states this is the only thing that keeps her from ending her life. She states that she saved 4 or 5 of her "sleeping pills--just in case." Her friend is at bedside and states that her symptoms have definitely worsened over the last few weeks. The patient is currently taking Lyrica. Vitals reviewed. Patient is hypertensive on presentation. Physical exam is reassuring. CBC, CMP , coags, UA all without concerning abnormalities. Tox screen negative. The patient is medically cleared for psychiatric evaluation, awaiting psychiatric recommendations. Diagnosis Primary Impression: Medical clearance for psychiatric admission Additional Impression: Adjustment disorder with depressed mood Referrals: Zack Cleveland MD Additional Instructions: Take medication as prescribed. Follow up with Dr. Cleveland as planned. Return to the ED for any urgent or emergent medical condition. Scripts Venlafaxine (Effexor) 75 Mg Tab 75 MG PO Q12H, #60 TAB 0 Refills Prov: Zack Cleveland MD 07/31/17 Disposition: 01 DISCHARGE HOME Condition: Stable Lalitha Ashraf Jul 31, 2017 12:04
[2017-07-31 13:10] VITALS: BP 194/77; PULSE 68; RESP 20; O2SAT 98
[2017-07-31 13:14] VITALS: BP 182/83
[2017-07-31] MEDS ORDERED: VENL75TA PO (15:41)
[2017-07-31 15:49] VITALS: BP 162/74; PULSE 78; RESP 20; O2SAT 98
--- NOTE | 2017-07-31 15:53 | PD ---
History of Present Illness Chief Complaint: Psychiatric Symptoms Time Seen by Provider: 15:30 Travel History International Travel<30 Days: No Contact w/Intl Traveler<30days: No Known affected area: No Legal Status Legal Status: Voluntary History of Present Illness: 81-year-old female with significant two-month history of depression. Patient has transitioned from independent living to a assisted living facility. She has no children. Her sister lives in [place]. Patient has medical problems including 2 bad knees. She has been treated with multiple antidepressants but she spends most of her time sleeping. She is having suicidal thoughts but states she will not attempt to kill herself, even though she has been hoarding her sleeping pills. (Patient agrees to give up her pills to her friend.) She is also Mu-Is[employer] and does to mass every morning. She is been on Lexapro 20 mg per day since April, without improvement. She has been on other antidepressants including Wellbutrin, Cymbalta, etc. This physician interviewed the patient, the patient's sister and the patient's friend. They are willing to watch out for her and would like this physician to treat her on an outpatient basis. She is verbally eliseo for safety. PFSH Past Medical History Hx Anticoagulant Therapy: Yes (WARFARIN) Arthritis: Yes Asthma: No Atrial Fibrillation: Yes Autoimmune Disease: No Blood Disorders: No Anxiety: Yes Depression: Yes Heart Rhythm Problems: No Cancer: No Cardiovascular Problems: Yes (A. FIB, HTN, CHOL) High Cholesterol: Yes Chest Pain: Yes Congestive Heart Failure: Yes COPD: No Diabetes: No Diminished Hearing: No Endocrine: No Gastrointestinal Disorders: Yes (GERD) GERD: Yes Glaucoma: No Genitourinary: Yes Hiatal Hernia: No Hypertension: Yes Immune Disorder: Yes (fibromyalgia) Implanted Vascular Access Dvce: Yes Kidney Stones: No Musculoskeletal: Yes Neurologic: No Psychiatric: Yes Reproductive: No Respiratory: Yes Myocardial Infarction: No Renal Failure: No Sickle Cell Disease: No Sleep Apnea: Yes (uses c-pap at nite) Thyroid Disease: No Ulcer: No Tetanus Vaccination: < 5 Years Past Surgical History Abdominal Surgery: No AICD: No Arteriovenous Shunt: No Cardiac Surgery: No Ear Surgery: No Endocrine Surgery: No Eye Surgery: Yes (paco cataract removed, LENS IMPLANTS) Genitourinary Surgery: No Gynecologic Surgery: Yes (hystereectomy partial) Hysterectomy: Yes Insulin Pump: No Joint Replacement: Yes (paco knees and L HIP) Oral Surgery: No Pacemaker: No Thoracic Surgery: No Other Surgery: Yes Psychiatric History Psychiatric History Hx Psychiatric Treatment: Patient has been treated for depression by primary care physician in the past. History of Inpatient Treatment: No Guns or firearms in home: No Social History Hx Alcohol Use: No Hx Tobacco Use: No Hx Substance Use: No Allergies-Medications (Allergen,Severity, Reaction): Coded Allergies: gabapentin (Unverified Allergy, Severe, Dizziness, 07/31/17) penicillin G (Unverified Allergy, Severe, Hives, 07/31/17) rivaroxaban (Unverified Allergy, Severe, MUSCLE ACHES, 07/31/17) Uncoded Allergies: donezepil (Adverse Reaction, Severe, Lethargy, 07/31/17) Reported Meds & Prescriptions Reported Meds & Active Scripts Active Effexor (Venlafaxine HCl) 75 Mg Tab 75 Mg PO Q12H Reported Oxybutynin ER 24 HR (Oxybutynin Chloride) 15 Mg Tab 15 Mg PO DAILY Jantoven (Warfarin) 5 Mg Tab 5 Mg PO DAILY Lyrica (Pregabalin) 50 Mg Cap 50 Mg PO BID Bactrim DS (Sulfamethoxazole-Trimethoprim) 800-160 Mg Tab 1 Tab PO BID Atorvastatin (Atorvastatin Calcium) 10 Mg Tab 10 Mg PO HS Esomeprazole DR 20 Mg Capdr 20 Mg PO DAILY Coumadin (Warfarin) 5 Mg Tab 5 Mg PO DAILY Ergocalciferol 50,000 Unit Cap 50,000 Units PO Q7D Flector Patch (Diclofenac Patch) 1.3 % Patch 1 Patch TOPICAL BID Valsartan-Hydrochlorothiazide 160-25 Mg Tab 1 Tab PO DAILY Metoprolol Tartrate 50 Mg Tab 50 Mg PO BID Myrbetriq (Mirabegron) 50 Mg Tab 50 Mg PO DAILY Belsomra (Suvorexant) 20 Mg Tab 2 Tab PO HS Amlodipine (Amlodipine Besylate) 10 Mg Tab 10 Mg PO BID Review of Systems Musculoskeletal: COMPLAINS OF: Muscle aches Except as stated in HPI: all other systems reviewed are Neg Mental Status Examination Appearance: Appropriate Consciousness: Alert Orientation: x4 Motor Activity: Normal gait Speech: Unremarkable Language: Adequate Fund of Knowledge: Adequate Attention and Concentration: Adequate Memory: Unremarkable Mood: Sad, Anxious Affect: Sad, Anxious Thought Process & Associations: Intact Thought Content: Appropriate Hallucination Type: None Delusion Type: None Suicidal Ideation: Yes Suicidal Plan: No Suicidal Intention: No Homicidal Ideation: No Homicidal Plan: No Homicidal Intention: No Insight: Adequate Judgment: Adequate MDM Medical Decision Making Medical Record Reviewed: Yes Assessment/Plan Patient interviewed at bedside as well as her sister and her friend. Medical record reviewed. Case discussed with nurse Venita. This physician started her on Effexor 37.5 mg every 12 hours for one week and then 75 mg every 12 hours. Informed consent was given. Patient will be given a follow up appointment with this physician once it is cleared with hospital administration. Orders Orders Complete Blood Count With Diff (07/31/17 10:58) Comprehensive Metabolic Panel (07/31/17 10:58) Urinalysis - C+S If Indicated (07/31/17 10:58) Psych Screen (07/31/17 10:58) Drug Screen, Random Urine (07/31/17 10:58) Alcohol (Ethanol) (07/31/17 10:58) Salicylates (Aspirin) (07/31/17 10:58) Tylenol (Acetaminophen) (07/31/17 10:58) Electrocardiogram (07/31/17 ) Prothrombin Time / Inr (Pt) (07/31/17 11:15) Diet Regular Basic (07/31/17 Lunch) Results Vital Signs Date Time Temp Pulse Resp B/P (MAP) Pulse Ox O2 Delivery O2 Flow Rate FiO2 07/31/17 13:14 182/83 (116) 07/31/17 13:10 68 20 194/77 (116) 98 07/31/17 10:52 98.4 83 20 227/95 (139) 97 Room Air Laboratory Tests Test 07/31/17 11:11 07/31/17 11:30 White Blood Count 7.0 Red Blood Count 4.43 Hemoglobin 11.2 Hematocrit 35.3 Mean Corpuscular Volume 79.6 Mean Corpuscular Hemoglobin 25.3 Mean Corpuscular Hemoglobin Concent 31.7 Red Cell Distribution Width 15.9 Platelet Count 195 Mean Platelet Volume 6.7 Neutrophils (%) (Auto) 72.2 Lymphocytes (%) (Auto) 16.9 Monocytes (%) (Auto) 9.4 Eosinophils (%) (Auto) 1.2 Basophils (%) (Auto) 0.3 Neutrophils # (Auto) 5.1 Lymphocytes # (Auto) 1.2 Monocytes # (Auto) 0.7 Eosinophils # (Auto) 0.1 Basophils # (Auto) 0.0 CBC Comment DIFF FINAL Differential Comment Prothrombin Time 29.5 Prothromb Time International Ratio 2.6 Blood Urea Nitrogen 22 Creatinine 0.62 Random Glucose 94 Total Protein 6.2 Albumin 3.4 Calcium Level 8.4 Alkaline Phosphatase 78 Aspartate Amino Transf (AST/SGOT) 16 Alanine Aminotransferase (ALT/SGPT) 16 Total Bilirubin 0.4 Sodium Level 142 Potassium Level 4.0 Chloride Level 108 Carbon Dioxide Level 29.5 Anion Gap 5 Estimat Glomerular Filtration Rate 92 Salicylates Level LESS THAN 1.7 Acetaminophen Level 2.6 Ethyl Alcohol Level LESS THAN 3 Urine Color LIGHT-YELLOW Urine Turbidity CLEAR Urine pH 7.0 Urine Specific [place] 1.004 Urine Protein NEG Urine Glucose (UA) NEG Urine Ketones NEG Urine Occult Blood TRACE Urine Nitrite NEG Urine Bilirubin NEG Urine Urobilinogen LESS THAN 2.0 Urine Leukocyte Esterase SMALL Urine RBC LESS THAN 1 Urine WBC 5 Urine Squamous Epithelial Cells <1 Urine Bacteria OCC Microscopic Urinalysis Comment CULT NOT INDICATED Urine Opiates Screen NEG Urine Barbiturates Screen NEG Urine Amphetamines Screen NEG Urine Benzodiazepines Screen NEG Urine Cocaine Screen NEG Urine Cannabinoids Screen NEG Diagnosis Primary Impression: Adjustment disorder with depressed mood Prescriptions Venlafaxine (Effexor) 75 Mg Tab 75 MG PO Q12H, #60 TAB 0 Refills Prov: Zack Cleveland MD 07/31/17 Zack Cleveland MD Jul 31, 2017 15:53
--- NOTE | 2017-08-01 14:26 | EKG ---
Date Performed: 07/31/2017 Time Performed: 11:03:09 PTAGE: 81 years EKG: Sinus rhythm LOW QRS VOLTAGE IN PRECORDIAL LEADS MINIMAL ST DEPRESSION BORDERLINE ECG PREVIOUS TRACING : 02/26/2017 05.03 DOCTOR: Juaquin Singer Interpretating Date/Time 08/01/2017 14:19:39
== END 2017-07-31 16:18 | disposition home or self-care (01) ==
LOC: NEPD 10:51
DX: F43.21 Adjustment disorder with depressed mood (principal); I48.91 Unspecified atrial fibrillation; I10 Essential (primary) hypertension; R94.31 Abnormal electrocardiogram [ECG] [EKG]; Z79.899 Other long term (current) drug therapy; Z79.01 Long term (current) use of anticoagulants
CPT/HCPCS: 80053; 80307; 81001; 85025; 85610; 93005; 99284

== ENCOUNTER 2017-08-08 10:29 | Inpatient (IN) | payer MEDICARE, OTHER ==
[2017-08-08] VITALS (11 sets, daily range): BP systolic 162–214; BP diastolic 68–102; PULSE 75–100; RESP 16–20; TEMP 97.6–98.2; O2SAT 87–98
[~2017-08-08] VITALS: Ht 144.8 cm; Wt 78.9 kg
[~2017-08-08 10:29] MED LIST changes: +JANT5TAB PO; +LYRI50CA PO; +OXYB15TA PO; +VENL75TA PO
[2017-08-08] MEDS ORDERED: KETO2CRE TOPICAL (11:07)
[2017-08-08] MEDS ORDERED: MEMA1TAB PO (11:07)
[2017-08-08] MEDS ORDERED: SUVO1TAB4 PO (11:07)
[2017-08-08] MEDS ORDERED: VENL75TA PO (11:09)
[2017-08-08] MEDS ORDERED: methylPREDNISolone SOD SUCC 125 MG/2 ML VIAL IV PUSH ONE (11:15)
[2017-08-08] MEDS ORDERED: SODIUM CHLORIDE 0.9% FLUSH 10 ML FLUSH IVF PRN (11:15)
[2017-08-08] MEDS: RESP: ALBUTEROL 2.5 MG/IPRATROPIUM 0.5 MG NEB (SCH) INH (11:18)
--- NOTE | 2017-08-08 11:42 | RADRPT ---
EXAM DATE/TIME: 08/08/2017 11:23 [facility] COMPARISON: CHEST SINGLE AP, February 25, 2017, 17:18. INDICATIONS : Short of breath. MEDICAL HISTORY : Hypercholesterolemia. Gastroesophageal reflux disease. Congestive heart failure. A-fib. Hypertens ion. Sleep apnea. Arthritis. Fibromyalgia. SURGICAL HISTORY : Hysterectomy. Total knee replacement, left. Total knee replacement, right. ENCOUNTER: Initial ACUITY: 1 day PAIN SCORE: 0/10 LOCATION: chest FINDINGS: Mild infiltrate seen in the right base. There is fullness in the right infrahilar region. Trace left base atelectasis noted. No large effusion. No pneumothorax. Heart size stable, upper limits of normal. CONCLUSION: Mild right base pneumonia. Possible right infrahilar mass or lymphadenopathy. CT of the chest recomme nded when clinically feasible, preferably with intravenous contrast. Sami Ocampo MD on August 08, 2017 at 11:40 Board Certified Radiologist. This report was verified electronically.
[2017-08-08 11:43] LABS: AUTOMATED NEUTROPHIL # 8.9 TH/MM3 (1.8-7.7); BASOPHIL # 0.2 TH/MM3 (0-0.2); BASOPHIL % 1.7 % (0.0-2.0); EOSINOPHIL # 0.1 TH/MM3 (0-0.4); EOSINOPHIL % 0.7 % (0.0-4.0); HEMATOCRIT 34.2 % (35.0-46.0); LYMPH % 10.2 % (9.0-44.0); LYMPHOCYTE # 1.1 TH/MM3 (1.0-4.8); MEAN CELL VOLUME 78.2 FL (80.0-100.0); MEAN CORPUSCULAR HEMOGLOBIN 24.3 PG (27.0-34.0); MONO % 7.9 % (0.0-8.0); NEUT % 79.5 % (16.0-70.0); PLATELET COUNT 167 TH/MM3 (150-450); RED BLOOD COUNT 4.37 MIL/MM3 (4.00-5.30); RED CELL DISTRIBUTION WIDTH 16.3 % (11.6-17.2); WHITE BLOOD COUNT 11.2 TH/MM3 (4.0-11.0)
[2017-08-08 11:45] LABS: HEMO FLAGS AUTO DIFF
[2017-08-08 11:56] LABS: BLOOD, URINE MOD (NEG); GLUCOSE,URINE NEG (NEG); KETONE, URINE NEG (NEG); NITRITE,URINE NEG (NEG)
[2017-08-08 11:59] LABS: INTERNATIONAL NORMALIZED RATIO 1.7 RATIO; PROTHROMBIN TIME - PATIENT 19.4 SEC (9.8-11.6)
[2017-08-08] MEDS ORDERED: LABETALOL HCL 100 MG/20 ML VIAL IV PUSH ONE (12:00)
[2017-08-08 12:01] LABS: METHOD OF COLLECTION CLEAN CATCH
[2017-08-08 12:02] LABS: COMMENT (UR) CULT NOT INDICATED; CULTURE IF INDICATED CULT NOT INDICATED; SQUAMOUS EPITHELIAL CELL URINE 0-5 /hpf (0-5); URINE COLOR YELLOW (YELLW/STRAW); WBC, URINE 0-2 /hpf (0-5)
--- NOTE | 2017-08-08 12:09 | PD ---
HPI Chief Complaint: Respiratory Symptoms Time Seen by Provider: 10:52 Travel History International Travel<30 days: No Contact w/Intl Traveler<30days: No Traveled to known affect area: No History of Present Illness HPI 81-year-old female complains of coughing congestion shortness of breath. Patient states that the symptoms started about 3 days ago. Patient states the cough is intermittently productive. Patient denies any chest pain. Patient states that she has dyspnea on exertion. Patient denies any fever chills. Patient has history hypertension and did not take her blood pressure medications this morning. Patient denies any headache. Patient denies any abdominal pain. Patient denies any focal weakness or numbness of the extremity. Patient has history of depression, restless leg syndrome, hypertension, atrial fibrillation on Coumadin, hyperlipidemia, fibromyalgia, sleep apnea on CPAP at night. PFSH Past Medical History Hx Anticoagulant Therapy: Yes (WARFARIN) Arthritis: Yes Asthma: No Atrial Fibrillation: Yes Autoimmune Disease: No Blood Disorders: No Anxiety: Yes Depression: Yes Heart Rhythm Problems: No Cancer: No Cardiovascular Problems: Yes (A. FIB, HTN, CHOL) High Cholesterol: Yes Chest Pain: Yes Congestive Heart Failure: Yes COPD: No Diabetes: No Diminished Hearing: No Endocrine: No Gastrointestinal Disorders: Yes (GERD) GERD: Yes Glaucoma: No Genitourinary: Yes Hiatal Hernia: No Hypertension: Yes Immune Disorder: Yes (fibromyalgia) Implanted Vascular Access Dvce: Yes Kidney Stones: No Musculoskeletal: Yes Neurologic: No Psychiatric: Yes Reproductive: No Respiratory: Yes Myocardial Infarction: No Renal Failure: No Sickle Cell Disease: No Sleep Apnea: Yes (uses c-pap at nite) Thyroid Disease: No Ulcer: No Past Surgical History Abdominal Surgery: No AICD: No Arteriovenous Shunt: No Cardiac Surgery: No Ear Surgery: No Endocrine Surgery: No Eye Surgery: Yes (paco cataract removed, LENS IMPLANTS) Genitourinary Surgery: No Gynecologic Surgery: Yes (hystereectomy partial) Hysterectomy: Yes Insulin Pump: No Joint Replacement: Yes (paco knees and L HIP) Neurologic Surgery: No Oral Surgery: No Pacemaker: No Thoracic Surgery: No Other Surgery: Yes Social History Alcohol Use: No Tobacco Use: No Substance Use: No Allergies-Medications (Allergen,Severity, Reaction): Coded Allergies: gabapentin (Unverified Allergy, Severe, Dizziness, 07/31/17) penicillin G (Unverified Allergy, Severe, Hives, 07/31/17) rivaroxaban (Unverified Allergy, Severe, MUSCLE ACHES, 07/31/17) Uncoded Allergies: donezepil (Adverse Reaction, Severe, Lethargy, 07/31/17) Reported Meds & Prescriptions Reported Meds & Active Scripts Active Reported Effexor (Venlafaxine HCl) 75 Mg Tab 75 Mg PO DAILY Memantine 5 Mg Tab 5 Mg PO BID Belsomra (Suvorexant) 20 Mg Tab 20 Mg PO HS Ketoconazole Topical 2% Cream 1 Applic TOPICAL BID Oxybutynin ER 24 HR (Oxybutynin Chloride) 15 Mg Tab 15 Mg PO DAILY Jantoven (Warfarin) 5 Mg Tab 5 Mg PO DAILY Ergocalciferol 50,000 Unit Cap 50,000 Units PO Q7D Valsartan-Hydrochlorothiazide 160-25 Mg Tab 1 Tab PO DAILY Metoprolol Tartrate 50 Mg Tab 50 Mg PO BID Review of Systems General / Constitutional: No: Fever Eyes: No: Visual changes HENT: No: Headaches Cardiovascular: No: Chest Pain or Discomfort Respiratory: Positive: Cough, Shortness of Breath Gastrointestinal: No: Abdominal Pain Genitourinary: No: Dysuria Musculoskeletal: No: Pain Skin: No Rash Neurologic: No: Weakness Psychiatric: No: Depression Endocrine: No: Polydipsia Hematologic/Lymphatic: No: Easy Bruising Physical Exam Narrative GENERAL: Well-nourished, well-developed patient. SKIN: Focused skin assessment warm/dry. HEAD: Normocephalic. EYES: No scleral icterus. No injection or drainage. NECK: Supple, trachea midline. No JVD or lymphadenopathy. CARDIOVASCULAR: Regular rate and rhythm without murmurs, gallops, or rubs. RESPIRATORY: Breath sounds equal bilaterally. No accessory muscle use. Patient has moderate expiratory wheezes bilaterally. Mild rhonchi at the bases. GASTROINTESTINAL: Abdomen soft, non-tender, nondistended. MUSCULOSKELETAL: No cyanosis, or edema. BACK: Nontender without obvious deformity. No CVA tenderness. Neurologic exam normal. Data Data Last Documented VS Vital Signs Date Time Temp Pulse Resp B/P (MAP) Pulse Ox O2 Delivery O2 Flow Rate FiO2 08/08/17 11:15 94 Nasal Cannula 2.00 08/08/17 10:30 98.2 92 18 214/102 (139) Orders Orders Complete Blood Count With Diff (08/08/17 11:07) B-Type Natriuretic Peptide (08/08/17 11:07) Act Partial Throm Time (Ptt) (08/08/17 11:07) Prothrombin Time / Inr (Pt) (08/08/17 11:07) Urinalysis - C+S If Indicated (08/08/17 11:07) Influenzae A/B Antigen (08/08/17 11:07) Iv Access Insert/Monitor (08/08/17 11:07) Electrocardiogram (08/08/17 11:07) Ecg Monitoring (08/08/17 11:07) Oximetry (08/08/17 11:07) Oxygen Administration (08/08/17 11:07) Chest, Single Ap (08/08/17 11:07) Sodium Chloride 0.9% Flush (Ns Flush) (08/08/17 11:15) Methylprednisolone So Succ Inj (Solumedr (08/08/17 11:15) Albuterol-Ipratropium Neb (Duoneb Neb) (08/08/17 11:15) Comprehensive Metabolic Panel (08/08/17 11:36) Labetalol Inj (Trandate Inj) (08/08/17 12:00) Ct Thorax/ Chest W Iv Contrast (08/08/17 12:11) Levofloxacin 750 Mg Premix Inj (Levaquin (08/08/17 12:15) Labs Laboratory Tests Test 08/08/17 11:35 08/08/17 11:46 White Blood Count 11.2 TH/MM3 Red Blood Count 4.37 MIL/MM3 Hemoglobin 10.6 GM/DL Hematocrit 34.2 % Mean Corpuscular Volume 78.2 FL Mean Corpuscular Hemoglobin 24.3 PG Mean Corpuscular Hemoglobin Concent 31.0 % Red Cell Distribution Width 16.3 % Platelet Count 167 TH/MM3 Mean Platelet Volume 6.1 FL Neutrophils (%) (Auto) 79.5 % Lymphocytes (%) (Auto) 10.2 % Monocytes (%) (Auto) 7.9 % Eosinophils (%) (Auto) 0.7 % Basophils (%) (Auto) 1.7 % Neutrophils # (Auto) 8.9 TH/MM3 Lymphocytes # (Auto) 1.1 TH/MM3 Monocytes # (Auto) 0.9 TH/MM3 Eosinophils # (Auto) 0.1 TH/MM3 Basophils # (Auto) 0.2 TH/MM3 CBC Comment AUTO DIFF Differential Comment AUTO DIFF CONFIRMED Prothrombin Time 19.4 SEC Prothromb Time International Ratio 1.7 RATIO Activated Partial Thromboplast Time 36.0 SEC Blood Urea Nitrogen 20 MG/DL Creatinine 0.63 MG/DL Random Glucose 101 MG/DL Total Protein 6.5 GM/DL Albumin 3.3 GM/DL Calcium Level 8.5 MG/DL Alkaline Phosphatase 83 U/L Aspartate Amino Transf (AST/SGOT) 28 U/L Alanine Aminotransferase (ALT/SGPT) 50 U/L Total Bilirubin 0.6 MG/DL Sodium Level 139 MEQ/L Potassium Level 3.7 MEQ/L Chloride Level 105 MEQ/L Carbon Dioxide Level 28.3 MEQ/L Anion Gap 6 MEQ/L Estimat Glomerular Filtration Rate 91 ML/MIN B-Type Natriuretic Peptide 549 PG/ML Urine Collection Type CLEAN CATCH Urine Color YELLOW Urine Turbidity CLEAR Urine pH 6.0 Urine Specific [place] 1.015 Urine Protein TRACE mg/dL Urine Glucose (UA) NEG mg/dL Urine Ketones NEG mg/dL Urine Occult Blood MOD Urine Nitrite NEG Urine Bilirubin NEG Urine Leukocyte Esterase NEG Urine RBC 20-24 /hpf Urine WBC 0-2 /hpf Urine Squamous Epithelial Cells 0-5 /hpf Microscopic Urinalysis Comment CULT NOT INDICATED Urine Collection Time 11:46 MDM Medical Decision Making Medical Screen Exam Complete: Yes Emergency Medical Condition: Yes Interpretation(s) Last Impressions Chest X-Ray 08/08/17 1107 Signed Impressions: Service Date/Time: Tuesday, August 08, 2017 11:23 - CONCLUSION: Mild right base pneumonia. Possible right infrahilar mass or lymphadenopathy. CT of the chest recommended when clinically feasible, preferably with intravenous contrast. Sami Ocampo MD 12:09 PM. CBC WBC 11.2. The globin 10.6 hematocrit 34.2. MCV 78.2. 79 neutrophil. INR 1.7. UA is negative. Differential Diagnosis Differential diagnosis including reactive airway disease, rhonchi at his, pneumonia, PE, pneumothorax, uncontrolled hypertension, hypertensive urgency, hypertensive crisis. Narrative Course 81-year-old female with coughing congestion and shortness of breath. History hypertension and did not take him blood pressure medication this morning. Albuterol Atrovent unit dose treatment 2. Solu-Medrol 125 mg IV. Labetalol 10 mg IV. Levaquin 750 mg IV given. Diagnosis Primary Impression: Pneumonia Qualified Codes: J18.1 - Lobar pneumonia, unspecified organism Additional Impression: Reactive airway disease Qualified Codes: J45.21 - Mild intermittent asthma with (acute) exacerbation Admitting Information Admitting Physician Requests: Admit Artemio Lobo MD Aug 08, 2017 12:09
[2017-08-08] MEDS ORDERED: LEVOFLOXACIN 750 MG PREMIX INJ 150 ML IV ONE (12:15)
[2017-08-08 12:21] LABS: SCAN/DIFF AUTO DIFF CONFIRMED
[2017-08-08 12:24] LABS: CHLORIDE 105 MEQ/L (98-107); POTASSIUM 3.7 MEQ/L (3.5-5.1); SODIUM (NA) 139 MEQ/L (136-145)
[2017-08-08 12:28] LABS: ANION GAP 6 MEQ/L (5-15); BICARBONATE 28.3 MEQ/L (21.0-32.0); BLOOD UREA NITROGEN 20 MG/DL (7-18)
[2017-08-08 12:31] LABS: ALT (GPT) 50 U/L (10-53); AST (GOT) 28 U/L (15-37); GLOMERULAR FILTRATION RATE 91 ML/MIN (>89)
[2017-08-08 12:33] LABS: TOTAL BILIRUBIN ADULT 0.6 MG/DL (0.2-1.0)
[2017-08-08 12:34] LABS: ALKALINE PHOSPHATASE 83 U/L (45-117)
--- NOTE | 2017-08-08 14:38 | HHI.HP ---
[facility] Gail Bazan DO Admission Diagnosis pneumonia. Reactive airway disease. Lung mass. Diagnoses: (1) Community acquired pneumonia Diagnosis: Principal (2) Hypertensive urgency Diagnosis: Principal (3) Shortness of breath Diagnosis: Principal (4) Abnormal chest x-ray Diagnosis: Principal Chief Complaint: Shortness of breath, cough Travel History International Travel<30 Days: No Contact w/Intl Traveler <30 Da: No Traveled to Known Affected Are: No History of Present Illness Written by Rick Shah, acting as scribe for Dr. Linares on 08/08/17 at 14:19. 81-year-old female with known history of hypertension, congestive heart failure, history of atrial fibrillation, obstructive sleep apnea, fibromyalgia, hyperlipidemia, anxiety/depression who presented to hospital because of shortness of breath and cough. Patient indicates that she has been experiencing shortness of breath, dyspnea on exertion for the last 6 days. Patient states that she has noticed more whenever she tries to exert herself. Patient is still laboratory with her wheeled walker and does go to the grocery store on her own. However she has had worsening shortness of breath over the last few days. Last night she could not sleep because she was coughing all night long. She describes it as a wet cough, however unable to produce any phlegm. When she woke up this morning at 7 AM she called the [facility] and requested to be taken to the emergency department. Patient denies any nausea, vomiting, fever, chills no change in appetite, no chest pain. She states that she normally doesn't have any swelling in her lower legs which she has noticed that she does get intermittent right lower extremity edema. Patient had workup done in found to have right lower lobe pneumonia, abnormal chest x-ray indicating possible right infrahilar mass or lymphadenopathy. Chest CT is recommended. On presentation she did have elevated blood pressure at 214/102. Patient was given labetalol with improvement of her blood pressure. Patient indicates that she did not take her blood pressure medication this morning. She is in charge of her medications and denies missing any dosages. He does indicate that she has recently moved into the [place] and it was a sudden change for her and she came to the hospital 1 week ago because of suicidal intentions. Patient had workup done by psychiatrist at that time and diagnosed with adjustment disorder and depressed mood and started her on Effexor. Patient does have obstructive sleep apnea and she is supposed to wear a CPAP, however she has not worn in 2 months because she states the mouthpiece is broken. Because of the abnormal findings in recommended by the ER physician that the patient be admitted for further evaluation and management. Review of Systems Respiratory: COMPLAINS OF: Cough, Shortness of breath Cardiovascular: COMPLAINS OF: Dyspnea on Exertion, Lower Extremity Edema Except as stated in HPI: all other systems reviewed are Neg Past Family Social History Past Medical History Hypertension Hyperlipidemia Congestive heart failure History of atrial fibrillation Gastroesophageal reflux Obstructive sleep apnea Fibromyalgia Depression Past Surgical History Right rotator cuff surgery Bilateral knee replacement Left hip replacement Cataract surgery Sciatic nerve surgery Partial hysterectomy Reported Medications Reported Meds & Active Scripts Active Reported Effexor (Venlafaxine HCl) 75 Mg Tab 75 Mg PO DAILY Memantine 5 Mg Tab 5 Mg PO BID Belsomra (Suvorexant) 20 Mg Tab 20 Mg PO HS Ketoconazole Topical 2% Cream 1 Applic TOPICAL BID Oxybutynin ER 24 HR (Oxybutynin Chloride) 15 Mg Tab 15 Mg PO DAILY Jantoven (Warfarin) 5 Mg Tab 5 Mg PO DAILY Ergocalciferol 50,000 Unit Cap 50,000 Units PO Q7D Valsartan-Hydrochlorothiazide 160-25 Mg Tab 1 Tab PO DAILY Metoprolol Tartrate 50 Mg Tab 50 Mg PO BID Allergies: Coded Allergies: gabapentin (Unverified Allergy, Severe, Dizziness, 07/31/17) penicillin G (Unverified Allergy, Severe, Hives, 07/31/17) rivaroxaban (Unverified Allergy, Severe, MUSCLE ACHES, 07/31/17) Uncoded Allergies: donezepil (Adverse Reaction, Severe, Lethargy, 07/31/17) Family History HTN Social History Patient denies any tobacco, alcohol or illicit drugs Physical Exam Vital Signs Vital Signs Date Time Temp Pulse Resp B/P (MAP) Pulse Ox O2 Delivery O2 Flow Rate FiO2 08/08/17 11:15 94 Nasal Cannula 2.00 08/08/17 11:15 94 Nasal Cannula 2.00 08/08/17 10:30 98.2 92 18 214/102 (139) 87 Physical Exam GENERAL: Well-developed, well-nourished, in no acute distress. alert and orientated HEENT: Head is normocephalic without any lesions or masses noted. Eyes: Extraocular muscles are intact. Conjunctivae were clear. Oropharyngeal: Pharynx without any erythema edema. Tongue is midline without deviation. Buccal mucosa is moist without any masses or lesions NECK: Supple without any masses. Trachea midline no deviation. No JVD, CARDIAC: Regular rhythm, regular rate. S1/S2 are heard. No murmurs gallops or rubs. LUNGS: Diminished breath sounds noted bibasilarly, rhonchi and moderate wheezes were appreciated bilaterally. No rales. Has mild conversive dyspnea ABDOMEN: Soft, nontender. Nondistended. Bowel sounds heard in all 4 quadrants. MSK: grossly intact ROM of all 54 extremities EXTREMITIES: No edema, pulses are equal bilaterally. No cyanosis or clubbing NEUROLOGY: No slurred speech, no facial droop, no tremors Psychiatry: Mood and affect appropriate Laboratory Laboratory Tests Test 08/08/17 11:35 08/08/17 11:46 White Blood Count 11.2 Red Blood Count 4.37 Hemoglobin 10.6 Hematocrit 34.2 Mean Corpuscular Volume 78.2 Mean Corpuscular Hemoglobin 24.3 Mean Corpuscular Hemoglobin Concent 31.0 Red Cell Distribution Width 16.3 Platelet Count 167 Mean Platelet Volume 6.1 Neutrophils (%) (Auto) 79.5 Lymphocytes (%) (Auto) 10.2 Monocytes (%) (Auto) 7.9 Eosinophils (%) (Auto) 0.7 Basophils (%) (Auto) 1.7 Neutrophils # (Auto) 8.9 Lymphocytes # (Auto) 1.1 Monocytes # (Auto) 0.9 Eosinophils # (Auto) 0.1 Basophils # (Auto) 0.2 CBC Comment AUTO DIFF Differential Comment AUTO DIFF CONFIRMED Prothrombin Time 19.4 Prothromb Time International Ratio 1.7 Activated Partial Thromboplast Time 36.0 Blood Urea Nitrogen 20 Creatinine 0.63 Random Glucose 101 Total Protein 6.5 Albumin 3.3 Calcium Level 8.5 Alkaline Phosphatase 83 Aspartate Amino Transf (AST/SGOT) 28 Alanine Aminotransferase (ALT/SGPT) 50 Total Bilirubin 0.6 Sodium Level 139 Potassium Level 3.7 Chloride Level 105 Carbon Dioxide Level 28.3 Anion Gap 6 Estimat Glomerular Filtration Rate 91 B-Type Natriuretic Peptide 549 Urine Collection Type CLEAN CATCH Urine Color YELLOW Urine Turbidity CLEAR Urine pH 6.0 Urine Specific Hardy 1.015 Urine Protein TRACE Urine Glucose (UA) NEG Urine Ketones NEG Urine Occult Blood MOD Urine Nitrite NEG Urine Bilirubin NEG Urine Leukocyte Esterase NEG Urine RBC 20-24 Urine WBC 0-2 Urine Squamous Epithelial Cells 0-5 Microscopic Urinalysis Comment CULT NOT INDICATED Urine Collection Time 11:46 Date/Time Source Procedure Growth Status 08/08/17 11:38 Nasal Washing Influenza Types A,B Antigen (LY) - Final NEGATIVE FOR FLU A AND B ANTIGEN.... Complete Result Diagram: 08/08/17 1135 08/08/17 1135 Imaging Last Impressions Chest X-Ray 08/08/17 1107 Signed Impressions: Service Date/Time: Tuesday, August 08, 2017 11:23 - CONCLUSION: Mild right base pneumonia. Possible right infrahilar mass or lymphadenopathy. CT of the chest recommended when clinically feasible, preferably with intravenous contrast. Sami Ocampo MD Capchasei VTE Risk Assessment Caprini VTE Risk Assessment: Mod/High Risk (score >= 2) Caprini Risk Assessment Model Point Value = 1 Point Value = 2 Point Value = 3 Point Value = 5 Age 41-60 Minor surgery BMI > 25 kg/m2 Swollen legs Varicose veins or History of unexplained or recurrent spontaneous Oral contraceptives or hormone replacement Sepsis (< 1 month) Serious lung disease, including pneumonia (< 1 month) Abnormal pulmonary function Acute myocardial infarction Congestive heart failure (< 1 month) History of inflammatory bowel disease Medical patient at bed rest Age 61-74 Arthroscopic surgery Major open surgery (> 45 min) Laparoscopic surgery (> 45 min) Malignancy Confined to bed (> 72 hours) Immobilizing plaster cast Central venous access Age >= 75 History of VTE Family history of VTE Factor V Leiden Prothrombin [id number] Lupus anticoagulant Anticardiolipin antibodies Elevated serum homocysteine Heparin-induced thrombocytopenia Other congenital or acquired thrombophilia Stroke (< 1 month) Elective arthroplasty Hip, pelvis, or leg fracture Acute spinal cord injury (< 1 month) Prophylaxis Regimen Total Risk Factor Score Risk Level Prophylaxis Regimen 0-1 Low Early ambulation 2 Moderate Order ONE of the following: *Sequential Compression Device (SCD) *Heparin 5000 units SQ BID 3-4 Higher Order ONE of the following medications: *Heparin 5000 units SQ TID *Enoxaparin/Lovenox 40 mg SQ daily (WT < 150 kg, CrCl > 30 mL/min) *Enoxaparin/Lovenox 30 mg SQ daily (WT < 150 kg, CrCl > 10-29 mL/min) *Enoxaparin/Lovenox 30 mg SQ BID (WT < 150 kg, CrCl > 30 mL/min) AND/OR *Sequential Compression Device (SCD) 5 or more Highest Order ONE of the following medications: *Heparin 5000 units SQ TID (Preferred with Epidurals) *Enoxaparin/Lovenox 40 mg SQ daily (WT < 150 kg, CrCl > 30 mL/min) *Enoxaparin/Lovenox 30 mg SQ daily (WT < 150 kg, CrCl > 10-29 mL/min) *Enoxaparin/Lovenox 30 mg SQ BID (WT < 150 kg, CrCl > 30 mL/min) AND *Sequential Compression Device (SCD) Assessment and Plan Assessment and Plan Shortness of breath, dyspnea on exertion, right lung pneumonia with hypoxia This is multifactorial with patient possible reactive airway disease, history of sleep apnea not using CPAP machine, abnormal chest x-ray, possible lung mass , elevated BNP in 500s, community acquired pneumonia Patient was given Levaquin, Solu-Medrol, DuoNeb in the emergency department with improvement Continue Levaquin Continue Solu-Medrol 40 mg every 6 hours Continue duo nebs every 6 hours and every 2 hours as needed Give Lasix 40 mg IV 1 Robitussin-AC as needed Hypertensive urgency Secondary to patient not taking her morning blood pressure medications Improved with 1 dose of labetalol Resume patient's home medications Monitor blood pressure a chest medications as needed Vasotec and clonidine as needed Abnormal chest x-ray Independently reviewed by Dr. Linares indicates Right infrahilar infiltrate that could resemble PNA vs mass or lymphadenopathy. CT of the chest ordered History of atrial fibrillation, hyperlipidemia, history of congestive heart failure Continue home medications DVT prevention continue home coumadin This note was transcribed by tonja Shah. I, Barry Linares, personally performed the history, physical exam, and medical decision making; and confirmed the accuracy of information in the transcribed note. Authenticated by Barry Linares on 08/08/17 at 1655. All orders entered by Antonio Shah were at my discretion. Physician Certification 2 Midnight Certification Type: Admission for Inpatient Services Order for Inpatient Services The services are ordered in accordance with Medicare regulations or non- Medicare payer requirements, as applicable. In the case of services not specified as inpatient-only, they are appropriately provided as inpatient services in accordance with the 2-midnight benchmark. Estimated LOS (days): 2 days is the estimated time the patient will need to remain in the hospital, assuming treatment plan goals are met and no additional complications. Post-Hospital Plan: [facility]/Rick Martinez Aug 08, 2017 14:38 Barry Linares MD Aug 08, 2017 16:01
[2017-08-08] MEDS ORDERED: NON-FORMULARY DRUG (Valsartan-Hydrochlorothiazide 1 TAB) PO SCH (14:45)
[2017-08-08] MEDS ORDERED: MAGNESIUM HYDROXIDE SUSP 30 ML CUP PO PRN (14:45)
[2017-08-08] MEDS ORDERED: ONDANSETRON HCL 4 MG/2 ML VIAL IVP PRN (14:45)
[2017-08-08] MEDS ORDERED: RESP: ALBUTEROL 2.5 MG/IPRATROPIUM 0.5 MG NEB (PRN) NEB (14:45)
[2017-08-08] MEDS ORDERED: NALOXONE HCL 0.4 MG/ML AMP IV PUSH PRN (14:45)
[2017-08-08] MEDS ORDERED: ENALAPRILAT 1.25 MG/ML VIAL IV PUSH PRN (14:45)
[2017-08-08] MEDS ORDERED: ACETAMINOPHEN 325 MG TAB PO PRN (14:45)
[2017-08-08] MEDS ORDERED: BISACODYL 10 MG SUPP RECTAL PRN (14:45)
[2017-08-08] MEDS ORDERED: cloNIDine HCL 0.1 MG TAB PO PRN (14:45)
[2017-08-08] MEDS ORDERED: IOHEXOL 350 MG/ML 10 ML VIAL (for RAD DIAG) IVCONTRAST ONE (14:53)
[2017-08-08] MEDS ORDERED: guaiFENesin/CODEINE SYRUP 200 MG/20 MG/10 ML CUP PO PRN (15:00)
--- NOTE | 2017-08-08 15:49 | RADRPT ---
EXAM DATE/TIME: 08/08/2017 14:42 [place] COMPARISON: No previous studies available for comparison. INDICATIONS : Cough, congestion and short of breath. Abnormal chest x-ray, evaluate for mass. IV CONTRAST: 60 cc Omnipaque 350 (iohexol) IV RADIATION DOSE: 23.42 CTDIvol (mGy) MEDICAL HISTORY : Congestive heart failure. Gastroesophageal reflux disease. SURGICAL HISTORY : Hysterectomy. ENCOUNTER: Initial ACUITY: 3 days PAIN SCALE: 4/10 LOCATION: chest TECHNIQUE: Volumetric scanning of the chest was performed. Using automated exposure control and adjustment of t he mA and/or kV according to patient size, radiation dose was kept as low as reasonably achievable to obtain optimal diagnostic quality images. DICOM format image data is available electronically for review and comparison. Follow-up recommendations for detected pulmonary nodules are based at a minimum on nodule size and pa tient risk factors according to Fleischner Society Guidelines. FINDINGS: LUNGS: Small bilateral pleural effusions, right greater than left with associated concomitant atelectatic ch anges. Perifissural atelectatic changes on the left.. PLEURA: Small bilateral pleural effusions, right greater than left. MEDIASTINUM: The heart and great vessels demonstrate no acute abnormality. There is no mediastinal or hilar lymph adenopathy. Atherosclerotic calcification of the coronary arteries. Calcification of the mitral valve anulus AXILLAE: Within normal limits. No lymphadenopathy. SKELETAL: Within normal limits for patient age. MISCELLANEOUS: The visualized upper abdominal organs demonstrate no acute abnormality. CONCLUSION: 1. Small bilateral pleural effusions, right greater than left with concomitant atelectatic changes. 2. Perifissural atelectatic changes in the left lung. 3. Calcification of the mitral annulus. Atherosclerotic calcification of the coronary arteries. 4. No mass lesion. Stephen Sosa MD on August 08, 2017 at 15:44 Board Certified Radiologist. This report was verified electronically.
[2017-08-08] MEDS ORDERED: FUROSEMIDE 40 MG/4 ML VIAL IV PUSH ONE (16:00)
[2017-08-08] MEDS ORDERED: POTASSIUM CHLORIDE 20 MEQ CONTROLLED RELEASE TAB PO ONE (17:00)
[2017-08-08] MEDS: methylPREDNISolone SOD SUCC 40 MG/1 ML VIAL IV PUSH SCH (18:03)
[2017-08-08] MEDS: VALSARTAN 160 MG TAB PO SCH (18:16)
[2017-08-08] MEDS: WARFARIN SOD 5 MG TAB PO SCH (18:16)
[2017-08-08] MEDS: VENLAFAXINE HCL XR 75 MG CAP PO SCH (18:16)
[2017-08-08] MEDS: METOPROLOL TARTRATE 50 MG TAB PO SCH ×2 (18:17→22:18)
[2017-08-08] MEDS: HYDROCHLOROTHIAZIDE 25 MG TAB PO SCH (18:17)
[2017-08-08] MEDS: RESP: ALBUTEROL 2.5 MG/IPRATROPIUM 0.5 MG NEB (SCH) NEB (21:48)
[2017-08-08] MEDS: DOCUSATE SODIUM 50 MG/SENNA 8.6 MG TAB PO SCH (22:19)
[2017-08-08] MEDS: MEMANTINE HCL 5 MG TAB PO SCH (22:19)
[2017-08-08] MEDS: TEMAZEPAM 15 MG CAP PO PRN (22:31)
[2017-08-09] VITALS (10 sets, daily range): BP systolic 119–207; BP diastolic 68–99; PULSE 68–83; RESP 20–24; TEMP 96.6–98.6; O2SAT 95–98
[2017-08-09] MEDS: methylPREDNISolone SOD SUCC 40 MG/1 ML VIAL IV PUSH SCH ×2 (00:07→05:18)
[2017-08-09 07:18] LABS: AUTOMATED NEUTROPHIL # 12.4 TH/MM3 (1.8-7.7); BASOPHIL % 0.1 % (0.0-2.0); EOSINOPHIL % 0.1 % (0.0-4.0); HEMATOCRIT 34.3 % (35.0-46.0); LYMPH % 3.7 % (9.0-44.0); LYMPHOCYTE # 0.5 TH/MM3 (1.0-4.8); MEAN CELL VOLUME 77.8 FL (80.0-100.0); MEAN CORPUSCULAR HEMOGLOBIN 24.2 PG (27.0-34.0); MEAN CORPUSCULAR HGB CONC 31.1 % (32.0-36.0); MONO % 3.5 % (0.0-8.0); NEUT % 92.6 % (16.0-70.0); PLATELET COUNT 190 TH/MM3 (150-450); RED CELL DISTRIBUTION WIDTH 15.8 % (11.6-17.2); WHITE BLOOD COUNT 13.4 TH/MM3 (4.0-11.0)
[2017-08-09 07:23] LABS: HEMO FLAGS AUTO DIFF
[2017-08-09 07:28] LABS: POTASSIUM 3.5 MEQ/L (3.5-5.1)
[2017-08-09] MEDS: RESP: ALBUTEROL 2.5 MG/IPRATROPIUM 0.5 MG NEB (SCH) NEB ×3 (07:33→20:25)
[2017-08-09 07:34] LABS: BICARBONATE 31.8 MEQ/L (21.0-32.0)
[2017-08-09 07:42] LABS: OVALOCYTES 1+ (NORMAL); SCAN/DIFF AUTO DIFF CONFIRMED
[2017-08-09 08:31] LABS: INTERNATIONAL NORMALIZED RATIO 1.8 RATIO; PROTHROMBIN TIME - PATIENT 20.2 SEC (9.8-11.6)
[2017-08-09] MEDS: HYDROCHLOROTHIAZIDE 25 MG TAB PO SCH (08:49)
[2017-08-09] MEDS: VENLAFAXINE HCL XR 75 MG CAP PO SCH (08:49)
[2017-08-09] MEDS: METOPROLOL TARTRATE 50 MG TAB PO SCH ×2 (08:49→19:59)
[2017-08-09] MEDS: DOCUSATE SODIUM 50 MG/SENNA 8.6 MG TAB PO SCH ×2 (08:49→19:59)
[2017-08-09] MEDS: VALSARTAN 160 MG TAB PO SCH (08:49)
[2017-08-09] MEDS: MEMANTINE HCL 5 MG TAB PO SCH ×2 (08:49→21:29)
[2017-08-09] MEDS ORDERED: LEVOFLOXACIN 750 MG PREMIX INJ 150 ML IV SCH ×2 (12:00→12:15)
[2017-08-09] MEDS ORDERED: methylPREDNISolone SOD SUCC 125 MG/2 ML VIAL IV PUSH ONE (12:30)
--- NOTE | 2017-08-09 13:12 | HHI.PR ---
Subjective Remarks Nursing denies any deterioration since last night except for intermittently elevated blood pressures. Patient herself says she feels much better since admission. but not at her baseline respiratory status just yet. Objective Vital Signs Date Time Temp Pulse Resp B/P (MAP) Pulse Ox O2 Delivery O2 Flow Rate FiO2 08/09/17 12:06 69 08/09/17 12:00 98.6 75 24 119/68 (85) 96 08/09/17 10:00 75 142/70 (94) 08/09/17 08:00 97.4 72 24 207/99 (135) 98 08/09/17 07:35 98 Nasal Cannula 2.00 08/09/17 04:00 96.6 74 20 164/79 (107) 95 08/09/17 00:00 97.0 68 20 146/73 (97) 96 08/08/17 21:48 98 Nasal Cannula 2.00 08/08/17 20:00 77 08/08/17 20:00 97.6 75 20 179/85 (116) 96 08/08/17 17:11 97 Nasal Cannula 2.00 08/08/17 16:30 98.2 87 20 186/95 (125) 95 08/08/17 16:00 08/08/17 14:58 90 16 198/84 (122) 94 Room Air 08/08/17 14:13 90 16 182/87 (118) 93 Nasal Cannula 2.00 08/08/17 13:46 90 16 162/68 (99) 95 Nasal Cannula 2.00 I/O 08/08/17 08/08/17 08/08/17 08/09/17 08/09/17 08/09/17 07:00 15:00 23:00 07:00 15:00 23:00 Intake Total 390 ml Output Total 100 ml 200 ml Balance -100 ml -200 ml 390 ml Intake Oral 240 ml IV Total 150 ml Output Urine Total 100 ml 200 ml # Voids 1 1 3 1 # Bowel Movements 0 Result Diagram: 08/09/17 0650 08/09/17 0650 Objective Remarks Mild to moderate expiratory wheezing, minimally labored breathing, no conversive dyspnea, no cyanosis Awake and alert A/P Assessment and Plan right lung pneumonia with hypoxia and bronchitis This is multifactorial with patient possible reactive airway disease, history of sleep apnea not using CPAP machine, abnormal chest x-ray, possible lung mass , elevated BNP in 500s, community acquired pneumonia Continue Levaquin Will increase steroids to 125 mg q8 hrs w/ transition to orals anticipated in AM Continue duo nebs every 6 hours and every 2 hours as needed Robitussin-AC as needed Hypertensive urgency resolved continue home medications Monitor blood pressure a chest medications as needed Vasotec and clonidine as needed No mass noted on CT scan, only pleural effusions. History of atrial fibrillation, hyperlipidemia, history of congestive heart failure Continue home medications DVT prevention Patient is on Coumadin Barry Linares MD Aug 09, 2017 13:12
--- NOTE | 2017-08-09 14:54 | EKG ---
Date Performed: 08/08/2017 Time Performed: 10:43:07 PTAGE: 81 years EKG: Sinus rhythm MINIMAL ST DEPRESSION BORDERLINE ECG PREVIOUS TRACING : 07/31/2017 11.03 Compared to prior tracing no significant change DOCTOR: Ledy Dillard Interpretating Date/Time 08/09/2017 14:51:14
[2017-08-09] MEDS: WARFARIN SOD 5 MG TAB PO SCH (15:41)
[2017-08-09] MEDS: TOLTERODINE TARTRATE 4 MG CAP LA PO SCH (15:41)
[2017-08-09] MEDS ORDERED: ERGOCALCIFEROL (VIT D2) 50,000 UNIT CAP PO SCH ×2 (16:00→20:00)
[2017-08-09] MEDS: methylPREDNISolone SOD SUCC 125 MG/2 ML VIAL IV PUSH SCH (19:59)
[2017-08-09] MEDS: TEMAZEPAM 15 MG CAP PO PRN (21:09)
[2017-08-10] VITALS: BP 131/61; PULSE 78; RESP 20; TEMP 96; O2SAT 100
[2017-08-10] MEDS: methylPREDNISolone SOD SUCC 125 MG/2 ML VIAL IV PUSH SCH (05:13)
[2017-08-10 06:16] LABS: INTERNATIONAL NORMALIZED RATIO 2.3 RATIO; PROTHROMBIN TIME - PATIENT 26.9 SEC (9.8-11.6)
[2017-08-10] MEDS: RESP: ALBUTEROL 2.5 MG/IPRATROPIUM 0.5 MG NEB (SCH) NEB ×2 (07:36→13:45)
[2017-08-10 07:38] VITALS: O2SAT 97
[2017-08-10 08:00] VITALS: BP 149/75; PULSE 83; RESP 20; TEMP 95.7; O2SAT 91
[2017-08-10] MEDS: HYDROCHLOROTHIAZIDE 25 MG TAB PO SCH (08:40)
[2017-08-10] MEDS: VALSARTAN 160 MG TAB PO SCH (08:40)
[2017-08-10] MEDS: METOPROLOL TARTRATE 50 MG TAB PO SCH (08:41)
[2017-08-10] MEDS: DOCUSATE SODIUM 50 MG/SENNA 8.6 MG TAB PO SCH (08:41)
[2017-08-10] MEDS: MEMANTINE HCL 5 MG TAB PO SCH (08:41)
[2017-08-10] MEDS: VENLAFAXINE HCL XR 75 MG CAP PO SCH (08:41)
[2017-08-10] MEDS: TOLTERODINE TARTRATE 4 MG CAP LA PO SCH (08:45)
[2017-08-10] MEDS ORDERED: PRED10PA2 PO (10:40)
[2017-08-10] MEDS ORDERED: REST15CA PO (10:40)
--- NOTE | 2017-08-10 10:41 | HHI.DCPOC ---
Discharge Care Plan Diagnosis: (1) Acute bronchitis (2) Shortness of breath (3) Reactive airway disease Goals to Promote Your Health * To prevent worsening of your condition and complications * To maintain your health at the optimal level Directions to Meet Your Goals Take your medications as prescribed Follow your dietary instruction Follow activity as directed Keep your appointments as scheduled Take your immunizations and boosters as scheduled If your symptoms worsen call your PCP, if no PCP go to Urgent Care Center or Emergency Room Smoking is Dangerous to Your Health. Avoid second hand smoke Call the 24-hour hour crisis hotline for domestic abuse at Barry Linares MD Aug 10, 2017 10:41
--- NOTE | 2017-08-10 10:43 | HHI.DS ---
Discharge Summary Admission Date Aug 08, 2017 at 13:42 Discharge Date: Aug 10, 2017 Admitting Diagnosis pneumonia. Reactive airway disease. Lung mass. (1) Hypertensive urgency ICD Code: I16.0 - Hypertensive urgency Diagnosis: Principal (2) Shortness of breath ICD Code: R06.02 - Shortness of breath Diagnosis: Principal (3) Abnormal chest x-ray ICD Code: R93.8 - Abnormal findings on diagnostic imaging of other specified body structures Diagnosis: Principal (4) Community acquired pneumonia ICD Code: J18.9 - Pneumonia, unspecified organism Diagnosis: Principal Procedures none Brief History - From Admission Written by Rick Shah, acting as scribe for Dr. Linares on 08/08/17 at 14:19. 81-year-old female with known history of hypertension, congestive heart failure, history of atrial fibrillation, obstructive sleep apnea, fibromyalgia, hyperlipidemia, anxiety/depression who presented to hospital because of shortness of breath and cough. Patient indicates that she has been experiencing shortness of breath, dyspnea on exertion for the last 6 days. Patient states that she has noticed more whenever she tries to exert herself. Patient is still laboratory with her wheeled walker and does go to the grocery store on her own. However she has had worsening shortness of breath over the last few days. Last night she could not sleep because she was coughing all night long. She describes it as a wet cough, however unable to produce any phlegm. When she woke up this morning at 7 AM she called the [facility] and requested to be taken to the emergency department. Patient denies any nausea, vomiting, fever, chills no change in appetite, no chest pain. She states that she normally doesn't have any swelling in her lower legs which she has noticed that she does get intermittent right lower extremity edema. Patient had workup done in found to have right lower lobe pneumonia, abnormal chest x-ray indicating possible right infrahilar mass or lymphadenopathy. Chest CT is recommended. On presentation she did have elevated blood pressure at 214/102. Patient was given labetalol with improvement of her blood pressure. Patient indicates that she did not take her blood pressure medication this morning. She is in charge of her medications and denies missing any dosages. He does indicate that she has recently moved into the [facility] and it was a sudden change for her and she came to the hospital 1 week ago because of suicidal intentions. Patient had workup done by psychiatrist at that time and diagnosed with adjustment disorder and depressed mood and started her on Effexor. Patient does have obstructive sleep apnea and she is supposed to wear a CPAP, however she has not worn in 2 months because she states the mouthpiece is broken. Because of the abnormal findings in recommended by the ER physician that the patient be admitted for further evaluation and management. CBC/BMP: 08/09/17 0650 08/09/17 0650 Significant Findings Laboratory Tests Test 08/08/17 11:35 08/08/17 11:46 08/09/17 06:50 08/10/17 05:15 White Blood Count 11.2 TH/MM3 (4.0-11.0) 13.4 TH/MM3 (4.0-11.0) Hemoglobin 10.6 GM/DL (11.6-15.3) 10.7 GM/DL (11.6-15.3) Hematocrit 34.2 % (35.0-46.0) 34.3 % (35.0-46.0) Mean Corpuscular Volume 78.2 FL (80.0-100.0) 77.8 FL (80.0-100.0) Mean Corpuscular Hemoglobin 24.3 PG (27.0-34.0) 24.2 PG (27.0-34.0) Mean Corpuscular Hemoglobin Concent 31.0 % (32.0-36.0) 31.1 % (32.0-36.0) Mean Platelet Volume 6.1 FL (7.0-11.0) 6.4 FL (7.0-11.0) Neutrophils (%) (Auto) 79.5 % (16.0-70.0) 92.6 % (16.0-70.0) Neutrophils # (Auto) 8.9 TH/MM3 (1.8-7.7) 12.4 TH/MM3 (1.8-7.7) Prothrombin Time 19.4 SEC (9.8-11.6) 20.2 SEC (9.8-11.6) 26.9 SEC (9.8-11.6) Activated Partial Thromboplast Time 36.0 SEC (24.3-30.1) Blood Urea Nitrogen 20 MG/DL (7-18) 22 MG/DL (7-18) Albumin 3.3 GM/DL (3.4-5.0) B-Type Natriuretic Peptide 549 PG/ML (0-100) Urine Occult Blood MOD (NEG) Urine RBC 20-24 /hpf (0-3) Lymphocytes (%) (Auto) 3.7 % (9.0-44.0) Lymphocytes # (Auto) 0.5 TH/MM3 (1.0-4.8) Ovalocytes 1+ (NORMAL) Random Glucose 148 MG/DL (74-106) Estimat Glomerular Filtration Rate 80 ML/MIN (>89) PE at Discharge No respiratory distress upon exam Mild expiratory wheezing heard Hospital Course Patient was admitted, started on IV steroids and abx for suspected CAP and subsequent bronchitis. Her symptoms improved over the next 48 hours significantly. Patient's respiratory status had returned to baseline and she was able to ambulate without difficulty. Patient remained afebrile throughout her stay and maintain saturations above 90% on room air by time of discharge. Patient was counseled extensively that she could possibly call for up to 2-3 weeks after discharge and that this was a normal variant course of recovery from her bronchitis. Patient was also counseled to follow up with her primary care physician to check on her Coumadin levels given that the antibiotics could alter this. Patient has met maximum benefit from hospitalization and is clinically stable for discharge. Pt Condition on Discharge: Stable Discharge Disposition: Discharge Home Discharge Time: <= 30 minutes Discharge Instructions DIET: Follow Instructions for: Coumadin (Warfarin) Diet Activities you can perform: Weight Bearing as Yudi Other Activity Instructions: Use walker as usual prior to hospitalization Follow up Referrals: Behavioral Services - 10 Days PCP Follow-up - 10 Days New Medications: Dextromethorphan-Guaifenesin ER 12 HR (Mucinex DM Maximum Strength) 60-1,200 Mg Tab 1 TAB PO BID PRN for CHEST CONGESTION AND/OR COUGH, #30 TAB 0 Refills Levofloxacin (Levofloxacin) 750 Mg Tablet 750 MG PO Q48H for Infection, #5 TAB 0 Refills Prednisone (48) 10 mg tab Dose Pack (Prednisone (48) 10 mg tab Dose Pack) 10 Mg Dspk 10 MG PO DIRECTED for Inflammation, #1 DSPK 0 Refills Temazepam (Restoril) 15 Mg Cap 15 MG PO HS PRN for INSOMNIA, #30 CAP Continued Medications: Ergocalciferol (Ergocalciferol) 50,000 Unit Cap 43349 UNITS PO Q7D for Nutritional Supplement, #30 CAP 0 Refills Ketoconazole Topical (Ketoconazole Topical) 2% Cream 1 APPLIC TOPICAL BID for Fungal Infection, #15 GM 0 Refills Memantine (Memantine) 5 Mg Tab 5 MG PO BID for Alzheimer's Dementia, TAB 0 Refills Metoprolol Tartrate (Metoprolol Tartrate) 50 Mg Tab 50 MG PO BID, #60 TAB 0 Refills Oxybutynin ER 24 HR (Oxybutynin ER 24 HR) 15 Mg Tab 15 MG PO DAILY for Overactive Bladder, TAB 0 Refills Valsartan-Hydrochlorothiazide (Valsartan-Hydrochlorothiazide) 160-25 Mg Tab 1 TAB PO DAILY for Blood Pressure Management, #30 TAB 0 Refills Venlafaxine (Effexor) 75 Mg Tab 75 MG PO DAILY, #30 TAB 0 Refills Warfarin (Jantoven) 5 Mg Tab 5 MG PO DAILY for Blood Clot Prevention, #30 TAB 0 Refills Discontinued Medications: Suvorexant (Belsomra) 20 Mg Tab 20 MG PO HS for Provide Good Sleep, #30 TAB 0 Refills Barry Linares MD Aug 10, 2017 10:43
[2017-08-10] MEDS ORDERED: RESP: ACETYLCYSTEINE 20% 30 ML NEB NEB ONE (10:45)
[2017-08-10] MEDS ORDERED: guaiFENesin E.R. 600 MG TAB PO ONE (10:45)
[2017-08-10] MEDS ORDERED: DEXT1TAB18 PO (10:52)
[2017-08-10 12:00] VITALS: BP 130/71; PULSE 73; RESP 20; TEMP 97.4; O2SAT 94
[2017-08-10] MEDS ORDERED: LEVOFLOXACIN 750 MG PREMIX INJ 150 ML IV SCH (12:00)
[2017-08-10] MEDS ORDERED: methylPREDNISolone SOD SUCC 125 MG/2 ML VIAL IV PUSH SCH (12:30)
[2017-08-10] MEDS ORDERED: LEVO750T3 PO (17:46)
== END 2017-08-10 14:00 | DRG 195 ==
LOC: PHED 10:29 → PHEDA 13:42 → PH3B 16:03
PROVIDERS: ADMIT Hospitalist; ATTEND Hospitalist
DX: J18.9 Pneumonia, unspecified organism (principal); I11.0 Hypertensive heart disease with heart failure; I50.9 Heart failure, unspecified; J20.9 Acute bronchitis, unspecified; I48.91 Unspecified atrial fibrillation; G47.33 Obstructive sleep apnea (adult) (pediatric); E78.5 Hyperlipidemia, unspecified; F32.9 Major depressive disorder, single episode, unspecified; G25.81 Restless legs syndrome; I16.0 Hypertensive urgency; R09.02 Hypoxemia; M79.7 Fibromyalgia; Z79.01 Long term (current) use of anticoagulants; J45.909 Unspecified asthma, uncomplicated; Z88.0 Allergy status to penicillin; Z88.8 Allergy status to other drugs, medicaments and biological substances
CPT/HCPCS: 71010; 71260; 80048; 80053; 81001; 83880; 85025; 85610; 85730; 87804; 93005; 94640; 94664; 96365; 96375; J1940; J1956; J2920; J2930; J7608; Q9967